=== PATIENT | female | born 1935 | race Caucasian/White ===

== ENCOUNTER 2017-08-05 09:43 | Inpatient (IN) | payer MEDICARE, BC ==
[2017-08-05] MEDS ORDERED: Ondansetron 4 MG/2 ML SDV IV PRN (12:53)
[2017-08-05] MEDS ORDERED: Sodium Chloride 0.9% 10 ML Syringe FLUSH PRN (12:53)
[2017-08-05] MEDS ORDERED: Ondansetron 4 MG Tab.DIS PO PRN (12:53)
[2017-08-05] MEDS ORDERED: Temazepam 15 MG Cap PO PRN (12:53)
[2017-08-05] MEDS ORDERED: fentaNYL 100 MCG/2 ML SDV IVPUSH PRN (12:56)
[2017-08-05] MEDS: Oxybutynin 5 MG Tab PO SCH ×2 (14:52→19:52)
[2017-08-05] MEDS: Enoxaparin 30 MG/0.3 ML Syringe SUBCUT SCH (14:52)
[2017-08-05] MEDS: ACETAMINOPHEN PO PRN (21:13)
[2017-08-05] MEDS: HYDROCODONE PO PRN (21:13)
[2017-08-06] MEDS ORDERED: Diazepam 5 MG Tab PO ONE (06:30)
[2017-08-06] MEDS: HYDROCODONE PO PRN (08:58)
[2017-08-06] MEDS: ACETAMINOPHEN PO PRN (08:58)
[2017-08-06] MEDS ORDERED: Cyclobenzaprine 10 MG Tab PO PRN (09:41)
[2017-08-06] MEDS ORDERED: fentaNYL 100 MCG/2 ML SDV IVPUSH PRN ×2 (09:41→10:17)
[2017-08-06] MEDS ORDERED: Ketorolac 30 MG/ML SDV IVPUSH ONE (09:41)
[2017-08-06] MEDS: Lisinopril 10 MG Tab PO SCH (10:11)
[2017-08-06] MEDS: Clopidogrel 75 MG Tab PO SCH (10:12)
[2017-08-06] MEDS: Isosorbide Mononitrate 30 MG Tab.ER PO SCH (10:12)
[2017-08-06] MEDS: Simvastatin 40 MG Tab PO SCH (10:12)
[2017-08-06] MEDS: Metoprolol Tartrate 25 MG Tab PO SCH (10:13)
[2017-08-06] MEDS: Furosemide 40 MG Tab PO SCH (10:13)
[2017-08-06] MEDS: Pantoprazole 40 MG Tab.CR PO SCH (10:13)
[2017-08-06] MEDS: Oxybutynin 5 MG Tab PO SCH ×3 (10:13→20:21)
[2017-08-06] MEDS ORDERED: methylPREDNISolone Sodium Succinate 125 MG/2 ML SDV ONE (10:18)
[2017-08-06] MEDS: Pantoprazole 40 MG Vial IVPUSH SCH (10:22)
[2017-08-06] MEDS ORDERED: Pantoprazole 40 MG Vial ONE (10:28)
[2017-08-06] MEDS ORDERED: Ketorolac 30 MG/ML SDV ONE (10:28)
[2017-08-06] MEDS: fentaNYL 100 MCG/2 ML SDV IVPUSH SCH ×2 (11:50→18:06)
[2017-08-06] MEDS: Enoxaparin 30 MG/0.3 ML Syringe SUBCUT SCH (14:07)
[2017-08-06] MEDS: Acetaminophen/HYDROcodone 325-5 MG Tab PO PRN ×2 (14:08→20:25)
[2017-08-06] MEDS ORDERED: fentaNYL 100 MCG/2 ML SDV IVPUSH ONE (15:10)
[2017-08-06] MEDS ORDERED: LORazepam 2 MG/ML Syringe IVPUSH ONE (15:10)
[2017-08-06] MEDS ORDERED: LORazepam 2 MG/ML Syringe ONE (15:26)
--- NOTE | 2017-08-06 21:42 | PCM.PN ---
- General Info Date of Service: 08/06/17 Admission Dx/Problem (Free Text): Back Pain due to compression fracture of L2 vertebrae Functional Status: Reports: Pain Controlled, Tolerating Diet. Denies: Ambulating - Review of Systems General: Reports: Weakness, Fatigue HEENT: Reports: No Symptoms Pulmonary: Reports: No Symptoms Cardiovascular: Reports: No Symptoms Gastrointestinal: Reports: No Symptoms Musculoskeletal: Reports: Back Pain Skin: Reports: No Symptoms Neurological: Reports: Weakness Psychiatric: Reports: No Symptoms - Patient Data Vitals - Most Recent: Last Vital Signs Temp 97.4 F 08/06/17 20:00 Pulse 78 08/06/17 20:00 Resp 16 08/06/17 20:00 BP 129/54 L 08/06/17 20:00 Pulse Ox 95 08/06/17 20:00 Weight - Most Recent: 226 lb Med Orders - Current: Current Medications Hydrocodone Bitart/Acetaminophen ([place] 325-5 Mg) 1 - 2 tab PO Q4H PRN PRN Reason: Pain (moderate 4-6) Last Admin: 08/06/17 20:25 Dose: 2 tab Clopidogrel Bisulfate (Plavix) 75 mg PO DAILY [facility] Last Admin: 08/06/17 10:12 Dose: 75 mg Cyclobenzaprine HCl (Flexeril) 5 mg PO BEDTIME PRN PRN Reason: Muscle Spasm Enoxaparin Sodium (Lovenox) 30 mg SUBCUT Q24H [facility] Last Admin: 08/06/17 14:07 Dose: 30 mg Fentanyl (Sublimaze) 50 mcg IVPUSH Q8H [facility] Last Admin: 08/06/17 18:06 Dose: 50 mcg Fentanyl (Sublimaze) 25 - 50 mcg IVPUSH Q6H PRN PRN Reason: Pain Furosemide (Lasix) 40 mg PO DAILY [facility] Last Admin: 08/06/17 10:13 Dose: 40 mg Isosorbide Mononitrate (Imdur) 30 mg PO DAILY [facility] Last Admin: 08/06/17 10:12 Dose: 30 mg Lisinopril (Prinivil) 20 mg PO DAILY [facility] Last Admin: 08/06/17 10:11 Dose: 20 mg Metoprolol Tartrate (Lopressor) 25 mg PO DAILY [facility] Last Admin: 08/06/17 10:13 Dose: 25 mg Ondansetron HCl (Zofran Odt) 4 mg PO Q4H PRN PRN Reason: nausea, able to take PO Ondansetron HCl (Zofran) 8 mg IV Q6H PRN PRN Reason: Nausea/Vomiting Oxybutynin Chloride (Oxybutynin) 5 mg PO TID [facility] Last Admin: 08/06/17 20:21 Dose: 5 mg Pantoprazole Sodium (Protonix) 40 mg PO DAILY [facility] Last Admin: 08/06/17 10:13 Dose: 40 mg Pantoprazole Sodium (Protonix Iv) 40 mg IVPUSH DAILY [facility] Last Admin: 08/06/17 10:22 Dose: 40 mg Simvastatin (Zocor) 40 mg PO DAILY [facility] Last Admin: 08/06/17 10:12 Dose: 40 mg Sodium Chloride (Saline Flush) 10 ml FLUSH ASDIRECTED PRN PRN Reason: Keep Vein Open Temazepam (Restoril) 15 mg PO BEDTIME PRN PRN Reason: Sleep Discontinued Medications Hydrocodone Bitart/Acetaminophen ([place] 325-5 Mg) 1 tab PO Q4H PRN PRN Reason: Pain (moderate 4-6) Last Admin: 08/06/17 08:58 Dose: 1 tab Diazepam (Valium.) 5 mg PO ONETIME ONE Stop: 08/06/17 06:31 Last Admin: 08/06/17 06:39 Dose: 5 mg Fentanyl (Sublimaze) 25 mcg IVPUSH Q6H PRN PRN Reason: Breakthrough Pain Last Admin: 08/06/17 07:35 Dose: 25 mcg Fentanyl (Sublimaze) 25 - 50 mcg IVPUSH Q4H PRN PRN Reason: Pain Fentanyl (Sublimaze) 50 mcg IVPUSH ONETIME ONE Stop: 08/06/17 15:11 Last Admin: 08/06/17 15:12 Dose: 50 mcg Ketorolac Tromethamine (Toradol) 30 mg IVPUSH ONETIME ONE Stop: 08/06/17 09:42 Last Admin: 08/06/17 10:18 Dose: 30 mg Lorazepam (Ativan) 1 mg IVPUSH ONETIME ONE Stop: 08/06/17 15:11 Last Admin: 08/06/17 15:16 Dose: 1 mg - Exam General: Alert, Oriented, Moderate Distress HEENT: Mucous Membr. Moist/[place] Neck: Supple Lungs: Clear to Auscultation, Normal Respiratory Effort Cardiovascular: Regular Rate, Regular Rhythm GI/Abdominal Exam: Normal Bowel Sounds, Soft, Non-Tender Back Exam: Decreased Range of Motion, Vertebral Tenderness Extremities: Normal Inspection, No Pedal Edema Skin: Warm, Dry Neurological: No New Focal Deficit - Problem List & Annotations (1) Compression fracture of L2 lumbar vertebra SNOMED Code(s): 15557154642509205 Code(s): S32.020A - WEDGE COMPRESSION FRACTURE OF SECOND LUMBAR VERTEBRA, INIT Status: Acute Priority: High Current Visit: Yes Qualifiers: Encounter type: initial encounter - Problem List Review Problem List Initiated/Reviewed/Updated: Yes - My Orders Last 24 Hours: My Active Orders 08/06/17 09:10 Acetaminophen/HYDROcodone [[place] 325-5 MG] 1 - 2 tab PO Q4H PRN 08/06/17 09:41 Cyclobenzaprine [Flexeril] 5 mg PO BEDTIME PRN 08/06/17 09:45 Pantoprazole [ProTONIX IV] 40 mg IVPUSH DAILY fentaNYL [Sublimaze] 50 mcg IVPUSH Q8H 08/06/17 10:17 fentaNYL [Sublimaze] 25 - 50 mcg IVPUSH Q6H PRN - Assessment Assessment:: L2 compression fracture - Plan Plan:: Patient continues to have ongoing back pain. Does not feel the meds provide her with nursing home benefits. Does well at rest, pain increases with movement. Not transferring well. Was incontinent of urine this am. Did attempt to do MRI this am but patient was unable to tolerate even though premedicated with Fentanyl and Ativan. Does not feel she could lie for a CT scan either. Is aware that further plan for possible vertebroplasty can not be done without the MRI/CT scan. Will attempt to repeat MRI later this afternoon. Changed Fentanyl to scheduled every 8 hours; transferred to inpatient status for pain control. Advised she could request additional pain meds between if needed. Start physical therapy. Inappropriate for discharge.
[2017-08-07] MEDS: fentaNYL 100 MCG/2 ML SDV IVPUSH SCH ×3 (02:57→17:52)
[2017-08-07] MEDS: Isosorbide Mononitrate 30 MG Tab.ER PO SCH (08:23)
[2017-08-07] MEDS: Simvastatin 40 MG Tab PO SCH (08:23)
[2017-08-07] MEDS: Metoprolol Tartrate 25 MG Tab PO SCH (08:24)
[2017-08-07] MEDS: Lisinopril 10 MG Tab PO SCH (08:24)
[2017-08-07] MEDS: Clopidogrel 75 MG Tab PO SCH (08:24)
[2017-08-07] MEDS: Furosemide 40 MG Tab PO SCH (08:25)
[2017-08-07] MEDS: Oxybutynin 5 MG Tab PO SCH ×3 (08:25→20:24)
[2017-08-07] MEDS: Pantoprazole 40 MG Tab.CR PO SCH (08:25)
[2017-08-07] MEDS: Acetaminophen/HYDROcodone 325-5 MG Tab PO PRN ×3 (08:30→20:24)
[2017-08-07] MEDS: Pantoprazole 40 MG Vial IVPUSH SCH (09:21)
[2017-08-07] MEDS: Enoxaparin 30 MG/0.3 ML Syringe SUBCUT SCH (12:06)
--- NOTE | 2017-08-07 17:25 | PCM.PN ---
- General Info Date of Service: 08/07/17 Admission Dx/Problem (Free Text): Back Pain due to compression fracture of L2 vertebrae Functional Status: Reports: Tolerating Diet. Denies: Pain Controlled, Ambulating - Review of Systems General: Reports: Weakness. Denies: Fever, Fatigue, Malaise HEENT: Reports: No Symptoms Pulmonary: Denies: Shortness of Breath, Cough, Sputum Cardiovascular: Denies: Chest Pain, Edema, Lightheadedness Gastrointestinal: Denies: Abdominal Pain, Nausea, Vomiting Genitourinary: Reports: No Symptoms Musculoskeletal: Reports: Back Pain Skin: Reports: No Symptoms Neurological: Reports: Weakness Psychiatric: Reports: No Symptoms - Patient Data Vitals - Most Recent: Last Vital Signs Temp 97.6 F 08/07/17 12:00 Pulse 75 08/07/17 12:00 Resp 20 08/07/17 12:00 BP 132/61 08/07/17 12:00 Pulse Ox 95 08/07/17 12:00 Weight - Most Recent: 226 lb Med Orders - Current: Current Medications Hydrocodone Bitart/Acetaminophen ([place] 325-5 Mg) 1 - 2 tab PO Q4H PRN PRN Reason: Pain (moderate 4-6) Last Admin: 08/07/17 15:03 Dose: 2 tab Cyclobenzaprine HCl (Flexeril) 5 mg PO BEDTIME PRN PRN Reason: Muscle Spasm Last Admin: 08/07/17 12:06 Dose: 5 mg Enoxaparin Sodium (Lovenox) 30 mg SUBCUT Q24H [facility] Last Admin: 08/07/17 12:06 Dose: 30 mg Fentanyl (Sublimaze) 50 mcg IVPUSH Q8H [facility] Last Admin: 08/07/17 09:33 Dose: 50 mcg Fentanyl (Sublimaze) 25 - 50 mcg IVPUSH Q6H PRN PRN Reason: Pain Furosemide (Lasix) 40 mg PO DAILY [facility] Last Admin: 08/07/17 08:25 Dose: 40 mg Isosorbide Mononitrate (Imdur) 30 mg PO DAILY [facility] Last Admin: 08/07/17 08:23 Dose: 30 mg Lisinopril (Prinivil) 20 mg PO DAILY [facility] Last Admin: 08/07/17 08:24 Dose: 20 mg Metoprolol Tartrate (Lopressor) 25 mg PO DAILY [facility] Last Admin: 08/07/17 08:24 Dose: 25 mg Ondansetron HCl (Zofran Odt) 4 mg PO Q4H PRN PRN Reason: nausea, able to take PO Ondansetron HCl (Zofran) 8 mg IV Q6H PRN PRN Reason: Nausea/Vomiting Oxybutynin Chloride (Oxybutynin) 5 mg PO TID [facility] Last Admin: 08/07/17 15:03 Dose: 5 mg Pantoprazole Sodium (Protonix) 40 mg PO DAILY [facility] Last Admin: 08/07/17 08:25 Dose: 40 mg Simvastatin (Zocor) 40 mg PO DAILY [facility] Last Admin: 08/07/17 08:23 Dose: 40 mg Sodium Chloride (Saline Flush) 10 ml FLUSH ASDIRECTED PRN PRN Reason: Keep Vein Open Temazepam (Restoril) 15 mg PO BEDTIME PRN PRN Reason: Sleep Discontinued Medications Hydrocodone Bitart/Acetaminophen ([place] 325-5 Mg) 1 tab PO Q4H PRN PRN Reason: Pain (moderate 4-6) Last Admin: 08/06/17 08:58 Dose: 1 tab Clopidogrel Bisulfate (Plavix) 75 mg PO DAILY [facility] Last Admin: 08/07/17 08:24 Dose: 75 mg Diazepam (Valium.) 5 mg PO ONETIME ONE Stop: 08/06/17 06:31 Last Admin: 08/06/17 06:39 Dose: 5 mg Fentanyl (Sublimaze) 25 mcg IVPUSH Q6H PRN PRN Reason: Breakthrough Pain Last Admin: 08/06/17 07:35 Dose: 25 mcg Fentanyl (Sublimaze) 25 - 50 mcg IVPUSH Q4H PRN PRN Reason: Pain Fentanyl (Sublimaze) 50 mcg IVPUSH ONETIME ONE Stop: 08/06/17 15:11 Last Admin: 08/06/17 15:12 Dose: 50 mcg Ketorolac Tromethamine (Toradol) 30 mg IVPUSH ONETIME ONE Stop: 08/06/17 09:42 Last Admin: 08/06/17 10:18 Dose: 30 mg Ketorolac Tromethamine (Toradol) Confirm Administered Dose 30 mg .ROUTE .STK- MED ONE Stop: 08/06/17 10:29 Last Admin: 08/07/17 10:52 Dose: Not Given Lorazepam (Ativan) 1 mg IVPUSH ONETIME ONE Stop: 08/06/17 15:11 Last Admin: 08/06/17 15:16 Dose: 1 mg Lorazepam (Ativan) Confirm Administered Dose 2 mg .ROUTE .STK-MED ONE Stop: 08/06/17 15:27 Last Admin: 08/07/17 10:52 Dose: Not Given Methylprednisolone Sodium Succinate (Solu-Medrol) Confirm Administered Dose 125 mg .ROUTE .STK-MED ONE Stop: 08/06/17 10:19 Last Admin: 08/07/17 10:52 Dose: Not Given Pantoprazole Sodium (Protonix Iv) 40 mg IVPUSH DAILY [facility] Last Admin: 08/07/17 09:21 Dose: Not Given Pantoprazole Sodium (Protonix Iv) Confirm Administered Dose 40 mg .ROUTE .STK -MED ONE Stop: 08/06/17 10:29 Last Admin: 08/07/17 10:52 Dose: Not Given - Exam General: Alert, Oriented HEENT: Mucous Membr. Moist/[place] Neck: Supple Lungs: Clear to Auscultation, Normal Respiratory Effort Cardiovascular: Regular Rate, Regular Rhythm GI/Abdominal Exam: Normal Bowel Sounds, Soft, Non-Tender Back Exam: Vertebral Tenderness (tender to lower thoracic and lumbar spine) Extremities: Normal Inspection, No Pedal Edema Skin: Warm, Dry Neurological: No New Focal Deficit - Problem List & Annotations (1) Compression fracture of L2 lumbar vertebra SNOMED Code(s): 78764002619079650 Code(s): S32.020A - [place]EDGE COMPRESSION FRACTURE OF SECOND LUMBAR VERTEBRA, INIT Status: Acute Priority: High Current Visit: Yes Qualifiers: Encounter type: initial encounter - Problem List Review Problem List Initiated/Reviewed/Updated: Yes - My Orders Last 24 Hours: My Active Orders 08/07/17 09:15 Lumbar Spine wo Cont [CT] Routine Thoracic Spine wo Cont [CT] Routine - Assessment Assessment:: L2 compression fracture - Plan Plan:: Patient continues to have ongoing back pain. 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 Does well at rest, pain increases with movement. Not transferring well. Was incontinent of urine this am. Did attempt to do MRI this am but patient was unable to tolerate even though premedicated with Fentanyl and Ativan. Does not feel she could lie for a CT scan either. Is aware that further plan for possible vertebroplasty can not be done without the MRI/CT scan. Will attempt to repeat MRI later this afternoon. Changed Fentanyl to scheduled every 8 hours; transferred to inpatient status for pain control. Advised she could request additional pain meds between if needed. Start physical therapy. Inappropriate for discharge. 08-07-2017 Patient continues to have complaints of ongoing pain. Staff relates she did rest well through the night, actually held her pain meds as she was difficult to around at 1 am. She states she is comfortable while at rest but pain is intense with movement. Unable to complete MRI yesterday on the second attempt as the MRI truck had to be moved for life flight to land so they opted to leave. Will proceed with CT scan for the thoracic and lumbar spine. Continue scheduled pain meds. Physical therapy. Possibly consult with Interventional Radiology pending the CT report. Inappropriate for discharge due to pain level.
[2017-08-08] MEDS: fentaNYL 100 MCG/2 ML SDV IVPUSH SCH ×3 (01:17→17:19)
[2017-08-08] MEDS: Acetaminophen/HYDROcodone 325-5 MG Tab PO PRN ×3 (07:01→19:34)
[2017-08-08] MEDS: Metoprolol Tartrate 25 MG Tab PO SCH (07:02)
[2017-08-08] MEDS: Simvastatin 40 MG Tab PO SCH (07:02)
[2017-08-08] MEDS: Pantoprazole 40 MG Tab.CR PO SCH (07:03)
[2017-08-08] MEDS: Furosemide 40 MG Tab PO SCH (07:03)
[2017-08-08] MEDS: Isosorbide Mononitrate 30 MG Tab.ER PO SCH (07:03)
[2017-08-08] MEDS: Oxybutynin 5 MG Tab PO SCH ×3 (07:03→19:34)
[2017-08-08] MEDS: Lisinopril 10 MG Tab PO SCH (07:03)
[2017-08-08] MEDS ORDERED: Cyclobenzaprine 10 MG Tab PO PRN (09:34)
[2017-08-08] MEDS: Enoxaparin 30 MG/0.3 ML Syringe SUBCUT SCH (12:12)
--- NOTE | 2017-08-08 23:37 | PCM.PN ---
- General Info Date of Service: 08/08/17 Admission Dx/Problem (Free Text): Back Pain due to compression fracture of L2 vertebrae Functional Status: Reports: Tolerating Diet, Ambulating. Denies: Pain Controlled - Review of Systems General: Reports: Weakness, Fatigue, Malaise. Denies: Fever HEENT: Reports: No Symptoms Pulmonary: Reports: Shortness of Breath. Denies: Cough Cardiovascular: Reports: Chest Pain, Edema, Lightheadedness Gastrointestinal: Denies: Abdominal Pain, Nausea, Vomiting Musculoskeletal: Reports: Back Pain Skin: Reports: No Symptoms Neurological: Reports: No Symptoms - Patient Data Vitals - Most Recent: Last Vital Signs Temp 98.2 F 08/08/17 19:51 Pulse 85 08/08/17 19:51 Resp 16 08/08/17 19:51 BP 141/60 H 08/08/17 19:51 Pulse Ox 97 08/08/17 19:51 Weight - Most Recent: 226 lb Med Orders - Current: Current Medications Hydrocodone Bitart/Acetaminophen ([place] 325-5 Mg) 1 - 2 tab PO Q4H PRN PRN Reason: Pain (moderate 4-6) Last Admin: 08/08/17 19:34 Dose: 2 tab Cyclobenzaprine HCl (Flexeril) 5 mg PO Q8H PRN PRN Reason: Muscle Spasm Last Admin: 08/08/17 10:24 Dose: 5 mg Enoxaparin Sodium (Lovenox) 30 mg SUBCUT Q24H [facility] Last Admin: 08/08/17 12:12 Dose: 30 mg Fentanyl (Sublimaze) 50 mcg IVPUSH Q8H [facility] Last Admin: 08/08/17 17:19 Dose: 50 mcg Fentanyl (Sublimaze) 25 - 50 mcg IVPUSH Q6H PRN PRN Reason: Pain Furosemide (Lasix) 40 mg PO DAILY [facility] Last Admin: 08/08/17 07:03 Dose: 40 mg Isosorbide Mononitrate (Imdur) 30 mg PO DAILY [facility] Last Admin: 08/08/17 07:03 Dose: 30 mg Lisinopril (Prinivil) 20 mg PO DAILY [facility] Last Admin: 08/08/17 07:03 Dose: 20 mg Metoprolol Tartrate (Lopressor) 25 mg PO DAILY [facility] Last Admin: 08/08/17 07:02 Dose: 25 mg Ondansetron HCl (Zofran Odt) 4 mg PO Q4H PRN PRN Reason: nausea, able to take PO Ondansetron HCl (Zofran) 8 mg IV Q6H PRN PRN Reason: Nausea/Vomiting Oxybutynin Chloride (Oxybutynin) 5 mg PO TID [facility] Last Admin: 08/08/17 19:34 Dose: 5 mg Pantoprazole Sodium (Protonix) 40 mg PO DAILY [facility] Last Admin: 08/08/17 07:03 Dose: 40 mg Simvastatin (Zocor) 40 mg PO DAILY [facility] Last Admin: 08/08/17 07:02 Dose: 40 mg Sodium Chloride (Saline Flush) 10 ml FLUSH ASDIRECTED PRN PRN Reason: Keep Vein Open Temazepam (Restoril) 15 mg PO BEDTIME PRN PRN Reason: Sleep Discontinued Medications Hydrocodone Bitart/Acetaminophen ([place] 325-5 Mg) 1 tab PO Q4H PRN PRN Reason: Pain (moderate 4-6) Last Admin: 08/06/17 08:58 Dose: 1 tab Clopidogrel Bisulfate (Plavix) 75 mg PO DAILY [facility] Last Admin: 08/07/17 08:24 Dose: 75 mg Cyclobenzaprine HCl (Flexeril) 5 mg PO BEDTIME PRN PRN Reason: Muscle Spasm Last Admin: 08/07/17 12:06 Dose: 5 mg Diazepam (Valium.) 5 mg PO ONETIME ONE Stop: 08/06/17 06:31 Last Admin: 08/06/17 06:39 Dose: 5 mg Fentanyl (Sublimaze) 25 mcg IVPUSH Q6H PRN PRN Reason: Breakthrough Pain Last Admin: 08/06/17 07:35 Dose: 25 mcg Fentanyl (Sublimaze) 25 - 50 mcg IVPUSH Q4H PRN PRN Reason: Pain Fentanyl (Sublimaze) 50 mcg IVPUSH ONETIME ONE Stop: 08/06/17 15:11 Last Admin: 08/06/17 15:12 Dose: 50 mcg Ketorolac Tromethamine (Toradol) 30 mg IVPUSH ONETIME ONE Stop: 08/06/17 09:42 Last Admin: 08/06/17 10:18 Dose: 30 mg Ketorolac Tromethamine (Toradol) Confirm Administered Dose 30 mg .ROUTE .STK- MED ONE Stop: 08/06/17 10:29 Last Admin: 08/07/17 10:52 Dose: Not Given Lorazepam (Ativan) 1 mg IVPUSH ONETIME ONE Stop: 08/06/17 15:11 Last Admin: 08/06/17 15:16 Dose: 1 mg Lorazepam (Ativan) Confirm Administered Dose 2 mg .ROUTE .STK-MED ONE Stop: 08/06/17 15:27 Last Admin: 08/07/17 10:52 Dose: Not Given Methylprednisolone Sodium Succinate (Solu-Medrol) Confirm Administered Dose 125 mg .ROUTE .STK-MED ONE Stop: 08/06/17 10:19 Last Admin: 08/07/17 10:52 Dose: Not Given Pantoprazole Sodium (Protonix Iv) 40 mg IVPUSH DAILY [facility] Last Admin: 08/07/17 09:21 Dose: Not Given Pantoprazole Sodium (Protonix Iv) Confirm Administered Dose 40 mg .ROUTE .STK -MED ONE Stop: 08/06/17 10:29 Last Admin: 08/07/17 10:52 Dose: Not Given - Exam General: Alert, Oriented HEENT: Mucous Membr. Moist/[place] Neck: Supple Lungs: Clear to Auscultation, Normal Respiratory Effort Cardiovascular: Regular Rate, Regular Rhythm Back Exam: Decreased Range of Motion, Vertebral Tenderness Skin: Warm, Dry Neurological: No New Focal Deficit - Problem List & Annotations (1) Compression fracture of L2 lumbar vertebra SNOMED Code(s): 70252573414652308 Code(s): S32.020A - [place]EDGE COMPRESSION FRACTURE OF SECOND LUMBAR VERTEBRA, INIT Status: Acute Priority: High Qualifiers: Encounter type: initial encounter (2) Thoracic compression fracture SNOMED Code(s): 761502405, [id number] Code(s): S22.000A - [place]ED[place] COMPRESSION FRACTURE OF UNSP THORACIC VERTEBRA, INIT Status: Acute Priority: High Qualifiers: Encounter type: initial encounter - Problem List Review Problem List Initiated/Reviewed/Updated: Yes - My Orders Last 24 Hours: My Active Orders 08/08/17 09:34 Cyclobenzaprine [Flexeril] 5 mg PO Q8H PRN - Assessment Assessment:: L2 compression fracture - Plan Plan:: Patient continues to have ongoing back pain. Does not feel the meds provide her with correction benefits. Does well at rest, pain increases with movement. Not transferring well. Was incontinent of urine this am. Did attempt to do MRI this am but patient was unable to tolerate even though premedicated with Fentanyl and Ativan. Does not feel she could lie for a CT scan either. Is aware that further plan for possible vertebroplasty can not be done without the MRI/CT scan. Will attempt to repeat MRI later this afternoon. Changed Fentanyl to scheduled every 8 hours; transferred to inpatient status for pain control. Advised she could request additional pain meds between if needed. Start physical therapy. Inappropriate for discharge. 08-07-2017 Patient continues to have complaints of ongoing pain. Staff relates she did rest well through the night, actually held her pain meds as she was difficult to around at 1 am. She states she is comfortable while at rest but pain is intense with movement. Unable to complete MRI yesterday on the second attempt as the MRI truck had to be moved for life flight to land so they opted to leave. Will proceed with CT scan for the thoracic and lumbar spine. Continue scheduled pain meds. Physical therapy. Possibly consult with Interventional Radiology pending the CT report. Inappropriate for discharge due to pain level. 08-08-2017 Patient has ongoing pain in her back. Despite pain meds, has discomfort with movement. CT results do show compression fractures to T10 and T12 as well as the lumbar one. Did speak with Dr. Matias this am and was informed that difficult to determine if subacute versus acute and will ultimately need an MRI. He does note that vertebroplasty will be beneficial for T12. Plan for her to be completely off the Plavix and ASA for one week today. Have him see her on Saturday for consult. Will determine if requires ambulance transfer and admission there dependent on pain level that day. Will continue with current pain meds, physical therapy. Plan for transfer to swing bed on Saturday for ongoing pain control and assistance with transfers/ ADLs. Family all informed.
[2017-08-09] MEDS: fentaNYL 100 MCG/2 ML SDV IVPUSH SCH ×2 (01:14→09:39)
[2017-08-09 07:29] VITALS: BP 177/81
[2017-08-09] MEDS: Furosemide 40 MG Tab PO SCH (08:20)
[2017-08-09] MEDS: Isosorbide Mononitrate 30 MG Tab.ER PO SCH (08:20)
[2017-08-09] MEDS: Metoprolol Tartrate 25 MG Tab PO SCH (08:20)
[2017-08-09] MEDS: Lisinopril 10 MG Tab PO SCH (08:21)
[2017-08-09] MEDS: Oxybutynin 5 MG Tab PO SCH (08:21)
[2017-08-09] MEDS: Pantoprazole 40 MG Tab.CR PO SCH (08:21)
[2017-08-09] MEDS: Simvastatin 40 MG Tab PO SCH (08:22)
[2017-08-09] MEDS: Acetaminophen/HYDROcodone 325-5 MG Tab PO PRN (08:29)
--- NOTE | 2017-08-09 12:22 | PCM.DCSUM1 ---
Discharge Summary - Hospital Course Free Text/Narrative:: Patient admitted by Dr. Palmer from clinic for ongoing low back pain. She had a previous fall several weeks ago, had been using pain medications and seeing PT but continues to get worse. States any type of activity is difficult due to pain. Has been noting muscle spasms with this. She had xrays initially after the fall with a notable lumbar compression fracture. Had felt she could manage at home but found that to be quite difficult. Admitted for pain control. MRI ordered. - Discharge Data Discharge Date: 08/09/17 Discharge Disposition: DC/Tfer W/I Hosp To Swing 61 Condition: Fair - Discharge Diagnosis/Problem(s) (1) Compression fracture of L2 lumbar vertebra SNOMED Code(s): [id number] ICD Code: S32.020A - WEDGE COMPRESSION FRACTURE OF SECOND LUMBAR VERTEBRA, INIT Status: Acute Priority: High Qualifiers: Encounter type: initial encounter (2) Thoracic compression fracture SNOMED Code(s): 365128771, 837171266 ICD Code: S22.000A - WEDGE COMPRESSION FRACTURE OF UNSP THORACIC VERTEBRA, INIT Status: Acute Priority: High Qualifiers: Encounter type: initial encounter - Patient Summary/Data Complications: none Consults: Consultations 08/05/17 12:53 PT Evaluation and Treatment [CONS] Routine Hospital Course: Patient has continued to have ongoing back pain despite receiving frequent medications. Does well at rest but has significant discomfort with transfers. Has been on scheduled IV Fentanyl and Butler PRN. Physical therapy working with patient. She was unable to complete the MRI on Saturday as she could not tolerate lying flat. CT ultimately was done on Saturday with more premedication. She does have 2 compression fractures in her thoracic spine in T10 and T12 as well with loss of height. Dr. Monte of interventional radiology was consulted. Does recommend proceeding with vertebroplasty but may need to do MRI under general anesthesia to determine acuteness of the fractures. Will be off her Coumadin and Plavix for a week on Saturday so will contact him with transfer and determine if able to be seen as an outpatient and that time or be admitted by them for the procedure. - Patient Instructions Diet: Usual Diet as Tolerated Activity: As Tolerated - Discharge Plan Home Medications: Home Meds Furosemide 1 tab PO DAILY 10/10/14 [History] Isosorbide Mononitrate [Imdur] 1 tab PO DAILY 10/10/14 [History] Lisinopril 20 mg PO DAILY 10/10/14 [History] Metoprolol Tartrate [Lopressor] 1 tab PO DAILY 10/10/14 [History] Omeprazole 1 tab PO DAILY 10/10/14 [History] Oxybutynin 5 mg PO TID 10/10/14 [History] atorvaSTATin [Lipitor] 1 tab PO DAILY 10/10/14 [History] traMADol HCl [Tramadol HCl] 2 tab PO BID 10/10/14 [History] Ascorbate Calcium [Vitamin C] 500 mg PO DAILY 08/05/17 [History] Aspirin [Halfprin] 81 mg PO DAILY 08/05/17 [History] Calcium Carbonate/Vitamin D3 [Calcium 600 + Vit D 400 Tablet] 1 each PO DAILY [History] Cholecalciferol (Vitamin D3) [Vitamin D3] 1,000 units PO DAILY 08/05/17 [History ] Gluc/Emigdio-Msm#2/C/D3/Hitesh/Born [Fncmxbzuam-Slwpdmqixzy-HML] 1 each PO BID [History] Hydrocodone/Acetaminophen [Hydrocodon-Acetaminophen 5-325] 5 - 325 mg PO ASDIRECTED PRN 08/05/17 [History] Levothyroxine Sodium [Levoxyl] 50 mcg PO DAILY 08/05/17 [History] Lutein 20 mg PO DAILY 08/05/17 [History] Multivitamins [Tab-A-Brandi] 1 each PO DAILY 08/05/17 [History] Potassium 1 tab PO DAILY 08/05/17 [History] Patient Handouts: Spinal Compression Fracture - Discharge Summary/Plan Comment DC Time >30 min.: Yes Discharge Summary/Plan Comment: Transfer to swing bed for ongoing pain control. Plan for more definitive care of fractures next week with Dr. Matias. Continue physical therapy and scheduled IV pain meds. Will start Miralax and stool softeners. Time with patient and family 15 minutes Time for orders 10 minutes Time for documentation 10 minutes. - General Info Date of Service: 08/09/17 Admission Dx/Problem (Free Text: Back Pain due to compression fracture of L2 vertebrae Functional Status: Reports: Tolerating Diet. Denies: Pain Controlled, Ambulating - Review of Systems General: Reports: Weakness, Fatigue HEENT: Reports: No Symptoms Pulmonary: Reports: No Symptoms Cardiovascular: Reports: No Symptoms Gastrointestinal: Reports: Constipation Genitourinary: Reports: No Symptoms Musculoskeletal: Reports: Back Pain Skin: Reports: No Symptoms Neurological: Reports: No Symptoms - Patient Data Vitals - Most Recent: Last Vital Signs Temp 98.0 F 08/09/17 07:28 Pulse 93 08/09/17 08:20 Resp 16 08/09/17 07:28 BP 177/81 H 08/09/17 08:21 Pulse Ox 97 08/09/17 07:28 Weight - Most Recent: 226 lb Med Orders - Current: Current Medications Discontinued Medications Hydrocodone Bitart/Acetaminophen (Butler 325-5 Mg) 1 tab PO Q4H PRN PRN Reason: Pain (moderate 4-6) Last Admin: 08/06/17 08:58 Dose: 1 tab Hydrocodone Bitart/Acetaminophen ([place]ler 325-5 Mg) 1 - 2 tab PO Q4H PRN PRN Reason: Pain (moderate 4-6) Last Admin: 08/09/17 08:29 Dose: 2 tab Clopidogrel Bisulfate (Plavix) 75 mg PO DAILY [facility] Last Admin: 08/07/17 08:24 Dose: 75 mg Cyclobenzaprine HCl (Flexeril) 5 mg PO BEDTIME PRN PRN Reason: Muscle Spasm Last Admin: 08/07/17 12:06 Dose: 5 mg Cyclobenzaprine HCl (Flexeril) 5 mg PO Q8H PRN PRN Reason: Muscle Spasm Last Admin: 08/08/17 10:24 Dose: 5 mg Diazepam (Valium.) 5 mg PO ONETIME ONE Stop: 08/06/17 06:31 Last Admin: 08/06/17 06:39 Dose: 5 mg Enoxaparin Sodium (Lovenox) 30 mg SUBCUT Q24H [facility] Last Admin: 08/08/17 12:12 Dose: 30 mg Fentanyl (Sublimaze) 25 mcg IVPUSH Q6H PRN PRN Reason: Breakthrough Pain Last Admin: 08/06/17 07:35 Dose: 25 mcg Fentanyl (Sublimaze) 50 mcg IVPUSH Q8H [facility] Last Admin: 08/09/17 09:39 Dose: 50 mcg Fentanyl (Sublimaze) 25 - 50 mcg IVPUSH Q4H PRN PRN Reason: Pain Fentanyl (Sublimaze) 25 - 50 mcg IVPUSH Q6H PRN PRN Reason: Pain Last Admin: 08/09/17 04:20 Dose: 50 mcg Fentanyl (Sublimaze) 50 mcg IVPUSH ONETIME ONE Stop: 08/06/17 15:11 Last Admin: 08/06/17 15:12 Dose: 50 mcg Furosemide (Lasix) 40 mg PO DAILY [facility] Last Admin: 08/09/17 08:20 Dose: 40 mg Isosorbide Mononitrate (Imdur) 30 mg PO DAILY [facility] Last Admin: 08/09/17 08:20 Dose: 30 mg Ketorolac Tromethamine (Toradol) 30 mg IVPUSH ONETIME ONE Stop: 08/06/17 09:42 Last Admin: 08/06/17 10:18 Dose: 30 mg Ketorolac Tromethamine (Toradol) Confirm Administered Dose 30 mg .ROUTE .STK- MED ONE Stop: 08/06/17 10:29 Last Admin: 08/07/17 10:52 Dose: Not Given Lisinopril (Prinivil) 20 mg PO DAILY [facility] Last Admin: 08/09/17 08:21 Dose: 20 mg Lorazepam (Ativan) 1 mg IVPUSH ONETIME ONE Stop: 08/06/17 15:11 Last Admin: 08/06/17 15:16 Dose: 1 mg Lorazepam (Ativan) Confirm Administered Dose 2 mg .ROUTE .STK-MED ONE Stop: 08/06/17 15:27 Last Admin: 08/07/17 10:52 Dose: Not Given Methylprednisolone Sodium Succinate (Solu-Medrol) Confirm Administered Dose 125 mg .ROUTE .STK-MED ONE Stop: 08/06/17 10:19 Last Admin: 08/07/17 10:52 Dose: Not Given Metoprolol Tartrate (Lopressor) 25 mg PO DAILY [facility] Last Admin: 08/09/17 08:20 Dose: 25 mg Ondansetron HCl (Zofran Odt) 4 mg PO Q4H PRN PRN Reason: nausea, able to take PO Ondansetron HCl (Zofran) 8 mg IV Q6H PRN PRN Reason: Nausea/Vomiting Oxybutynin Chloride (Oxybutynin) 5 mg PO TID [facility] Last Admin: 08/09/17 08:21 Dose: 5 mg Pantoprazole Sodium (Protonix) 40 mg PO DAILY [facility] Last Admin: 08/09/17 08:21 Dose: 40 mg Pantoprazole Sodium (Protonix Iv) 40 mg IVPUSH DAILY [facility] Last Admin: 08/07/17 09:21 Dose: Not Given Pantoprazole Sodium (Protonix Iv) Confirm Administered Dose 40 mg .ROUTE .STK -MED ONE Stop: 08/06/17 10:29 Last Admin: 08/07/17 10:52 Dose: Not Given Simvastatin (Zocor) 40 mg PO DAILY [facility] Last Admin: 08/09/17 08:22 Dose: 40 mg Sodium Chloride (Saline Flush) 10 ml FLUSH ASDIRECTED PRN PRN Reason: Keep Vein Open Temazepam (Restoril) 15 mg PO BEDTIME PRN PRN Reason: Sleep - Exam General: Reports: Alert, Oriented HEENT: Reports: Mucous Membr. Moist/[place] Neck: Reports: Supple Lungs: Reports: Clear to Auscultation, Normal Respiratory Effort Cardiovascular: Reports: Regular Rate, Regular Rhythm GI/Abdominal Exam: Normal Bowel Sounds, Soft, Non-Tender Back Exam: Reports: Normal Inspection, Decreased Range of Motion, Muscle Spasm, Vertebral Tenderness Extremities: Normal Inspection Skin: Reports: Warm, Dry Neurological: Reports: No New Focal Deficit
== END 2017-08-09 10:16 | disposition swing bed (61) | DRG 552 ==
LOC: CC.MS 09:43 → UNDOADMOB 10:43 → CC.MS 12:53 → OBSVTOIN 08-06 09:43
PROVIDERS: ADMIT Family Medicine; ATTEND Family Medicine
DX: S32.029A Unspecified fracture of second lumbar vertebra, initial encounter for closed fracture (principal); S32.039A Unspecified fracture of third lumbar vertebra, initial encounter for closed fracture; S32.020A Wedge compression fracture of second lumbar vertebra, initial encounter for closed fracture; S22.070A Wedge compression fracture of T9-T10 vertebra, initial encounter for closed fracture; S22.080A Wedge compression fracture of T11-T12 vertebra, initial encounter for closed fracture; S32.030A Wedge compression fracture of third lumbar vertebra, initial encounter for closed fracture; W19.XXXA Unspecified fall, initial encounter; I25.10 Atherosclerotic heart disease of native coronary artery without angina pectoris; D47.2 Monoclonal gammopathy; K21.9 Gastro-esophageal reflux disease without esophagitis; E78.5 Hyperlipidemia, unspecified; I10 Essential (primary) hypertension; E03.9 Hypothyroidism, unspecified; M15.9 Polyosteoarthritis, unspecified; M81.0 Age-related osteoporosis without current pathological fracture; N32.81 Overactive bladder; M54.9 Dorsalgia, unspecified; Z88.8 Allergy status to other drugs, medicaments and biological substances; Z79.82 Long term (current) use of aspirin; Z79.899 Other long term (current) drug therapy; Z96.659 Presence of unspecified artificial knee joint; Z79.01 Long term (current) use of anticoagulants; Z79.02 Long term (current) use of antithrombotics/antiplatelets
CPT/HCPCS: 36415; 72070; 72128; 72131; 80048; 81001; 85025; 96372; 97110-GP; 97161-GP; 97530-GP; A9270-GY; C9113; G0378; J1650; J1885; J2060; J3010

== ENCOUNTER 2017-08-09 09:46 | Inpatient (IN) | payer MEDICARE, BC ==
[2017-08-09] MEDS ORDERED: fentaNYL 100 MCG/2 ML SDV IVPUSH PRN (10:56)
[2017-08-09] MEDS ORDERED: Ondansetron 4 MG Tab.DIS PO PRN (10:56)
[2017-08-09] MEDS ORDERED: Sodium Chloride 0.9% 10 ML Syringe FLUSH PRN ×2 (10:56)
[2017-08-09] MEDS ORDERED: Temazepam 15 MG Cap PO PRN (10:56)
[2017-08-09] MEDS ORDERED: Ondansetron 4 MG/2 ML SDV IV PRN (10:56)
[2017-08-09] MEDS ORDERED: fentaNYL 100 MCG/2 ML SDV IVPUSH SCH (12:00)
[2017-08-09] MEDS: Docusate Sodium 100 MG Cap PO SCH ×2 (12:05→19:46)
[2017-08-09] MEDS: Polyethylene Glycol 3350 Powder 17 GM Packet PO SCH (12:05)
[2017-08-09] MEDS: Cyclobenzaprine 10 MG Tab PO PRN ×2 (12:06→20:01)
[2017-08-09] MEDS: Enoxaparin 30 MG/0.3 ML Syringe SUBCUT SCH (12:06)
[2017-08-09] MEDS: Potassium Chloride 10 MEQ Tab.ER PO SCH (13:25)
[2017-08-09] MEDS: Oxybutynin 5 MG Tab PO SCH ×2 (13:26→19:46)
[2017-08-09] MEDS: fentaNYL 100 MCG/2 ML SDV IVPUSH SCH ×2 (15:35→23:44)
[2017-08-09] MEDS: Acetaminophen/HYDROcodone 325-5 MG Tab PO PRN (17:55)
[2017-08-10] MEDS: Acetaminophen/HYDROcodone 325-5 MG Tab PO PRN ×2 (05:01→14:02)
[2017-08-10] MEDS: Polyethylene Glycol 3350 Powder 17 GM Packet PO SCH (07:35)
[2017-08-10] MEDS: Pantoprazole 40 MG Tab.CR PO SCH (07:35)
[2017-08-10] MEDS: Lisinopril 10 MG Tab PO SCH (07:35)
[2017-08-10] MEDS: Oxybutynin 5 MG Tab PO SCH ×3 (07:35→19:49)
[2017-08-10] MEDS: Furosemide 40 MG Tab PO SCH (07:36)
[2017-08-10] MEDS: Isosorbide Mononitrate 30 MG Tab.ER PO SCH (07:36)
[2017-08-10] MEDS: Metoprolol Tartrate 25 MG Tab PO SCH (07:36)
[2017-08-10] MEDS: Potassium Chloride 10 MEQ Tab.ER PO SCH (07:37)
[2017-08-10] MEDS: Docusate Sodium 100 MG Cap PO SCH ×2 (07:37→19:48)
[2017-08-10] MEDS: fentaNYL 100 MCG/2 ML SDV IVPUSH SCH ×2 (07:39→17:47)
[2017-08-10] MEDS: Levothyroxine 50 MCG Tab PO SCH (07:42)
[2017-08-10] MEDS: Enoxaparin 30 MG/0.3 ML Syringe SUBCUT SCH (11:05)
[2017-08-10] MEDS: Simvastatin 40 MG Tab PO SCH (19:48)
[2017-08-11] MEDS: fentaNYL 100 MCG/2 ML SDV IVPUSH SCH ×3 (00:49→16:08)
[2017-08-11] MEDS: Levothyroxine 50 MCG Tab PO SCH (06:14)
[2017-08-11] MEDS: Pantoprazole 40 MG Tab.CR PO SCH (06:14)
[2017-08-11] MEDS: Isosorbide Mononitrate 30 MG Tab.ER PO SCH (08:14)
[2017-08-11] MEDS: Oxybutynin 5 MG Tab PO SCH ×3 (08:14→19:43)
[2017-08-11] MEDS: Polyethylene Glycol 3350 Powder 17 GM Packet PO SCH (08:14)
[2017-08-11] MEDS: Cyclobenzaprine 10 MG Tab PO PRN (08:15)
[2017-08-11] MEDS: Furosemide 40 MG Tab PO SCH (08:15)
[2017-08-11] MEDS: Metoprolol Tartrate 25 MG Tab PO SCH (08:15)
[2017-08-11] MEDS: Docusate Sodium 100 MG Cap PO SCH ×2 (08:16→19:43)
[2017-08-11] MEDS: Lisinopril 10 MG Tab PO SCH (08:16)
[2017-08-11] MEDS: Potassium Chloride 10 MEQ Tab.ER PO SCH (08:16)
[2017-08-11] MEDS: Enoxaparin 30 MG/0.3 ML Syringe SUBCUT SCH (12:11)
[2017-08-11] MEDS: Acetaminophen/HYDROcodone 325-5 MG Tab PO PRN ×2 (13:48→19:50)
[2017-08-11] MEDS: Simvastatin 40 MG Tab PO SCH (19:43)
[2017-08-12] MEDS: fentaNYL 100 MCG/2 ML SDV IVPUSH SCH ×2 (00:26→08:20)
[2017-08-12] MEDS: Pantoprazole 40 MG Tab.CR PO SCH (06:16)
[2017-08-12] MEDS: Acetaminophen/HYDROcodone 325-5 MG Tab PO PRN (06:16)
[2017-08-12] MEDS: Levothyroxine 50 MCG Tab PO SCH (06:16)
[2017-08-12 07:25] VITALS: BP 153/71
[2017-08-12] MEDS: Polyethylene Glycol 3350 Powder 17 GM Packet PO SCH (08:09)
[2017-08-12] MEDS: Metoprolol Tartrate 25 MG Tab PO SCH (08:10)
[2017-08-12] MEDS: Lisinopril 10 MG Tab PO SCH (08:10)
[2017-08-12] MEDS: Potassium Chloride 10 MEQ Tab.ER PO SCH (08:10)
[2017-08-12] MEDS: Isosorbide Mononitrate 30 MG Tab.ER PO SCH (08:10)
[2017-08-12] MEDS: Oxybutynin 5 MG Tab PO SCH (08:10)
[2017-08-12] MEDS: Docusate Sodium 100 MG Cap PO SCH (08:10)
[2017-08-12] MEDS: Furosemide 40 MG Tab PO SCH (08:26)
--- NOTE | 2017-08-14 09:19 | PCM.DCSUM1 ---
Discharge Summary - Hospital Course Free Text/Narrative:: Patient admitted from clinic with increased back pain. Had been previously diagnosed with a compression fracture and was on pain medications at home. Pain had progressed and patient not able to transfer, sleep or ambulate well due to pain. Admitted for pain control and therapy. During acute stay, patient unable to lie flat for MRI despite premedication. She continued to have significant discomfort. CT ordered that does show 3 compressions fractures , T10, T12, L1. Had been given 2 doses of Plavix after admission. Discussed report and pain with Dr. Monte, interventional radiology. Agrees may be candidate for vertebroplasty and needs to be off ASA and Plavix for the 7 days. Transferred to swing bed for ongoing pain control during this time frame. - Discharge Data Discharge Date: 08/12/17 Discharge Disposition: Home, Self-Care 01 Condition: Good - Patient Summary/Data Complications: none Consults: Consultations 08/09/17 10:56 PT Evaluation and Treatment [CONS] Routine Hospital Course: Patient has improved slightly over the weekend, continues to have pain but more cooperative with transfers to bathroom. Has ongoing pain in the mid to low back. Appetite has been good. Discussed again with DR. Monte this am. Will discharge patient to be seen by him in clinic today in [place] and he will determine admission status versus having patient return for MRI under sedation and possible vertebroplasty. She was given 2 pain medications this am. Discharge home after procedure with home health care. Nursing to monitor pain status, blood pressure and ability to care for self, ie. ADLs. Physical therapy for strengthening. Is homebound due to inability to drive because of compression fractures, weakness and pain. Monitor for safety regarding falls. Dr. Palmer to oversee home health care. - Patient Instructions Diet: Usual Diet as Tolerated Activity: As Tolerated - Discharge Plan Prescriptions/Med Rec: Hydrocodone/Acetaminophen [Hydrocodon-Acetaminophen 5-325] 5 - 325 mg PO ASDIRECTED PRN #30 tablet PRN Reason: Pain Home Medications: Home Meds Furosemide 1 tab PO DAILY 10/10/14 [History] Isosorbide Mononitrate [Imdur] 1 tab PO DAILY 10/10/14 [History] Lisinopril 20 mg PO DAILY 10/10/14 [History] Metoprolol Tartrate [Lopressor] 1 tab PO DAILY 06/28/15 [History] Omeprazole 1 tab PO DAILY 10/10/14 [History] Oxybutynin 5 mg PO TID 10/10/14 [History] atorvaSTATin [Lipitor] 1 tab PO DAILY 10/10/14 [History] traMADol HCl [Tramadol HCl] 2 tab PO BID 10/10/14 [History] Ascorbate Calcium [Vitamin C] 500 mg PO DAILY 08/05/17 [History] Aspirin [Halfprin] 81 mg PO DAILY 08/05/17 [History] Calcium Carbonate/Vitamin D3 [Calcium 600-Vit D3 400 Tablet] 1 each PO DAILY [History] Cholecalciferol (Vitamin D3) [Vitamin D3] 1,000 units PO DAILY 08/05/17 [History ] Gluc/Emigdio-Msm#2/C/D3/Hitesh/Born [Xcqnnnbckw-Kyaptszjmzh-IOE] 1 each PO BID [History] Levothyroxine Sodium [Levoxyl] 50 mcg PO DAILY 08/05/17 [History] Lutein 20 mg PO DAILY 08/05/17 [History] Multivitamins [Tab-A-Brandi] 1 each PO DAILY 08/05/17 [History] Potassium 1 tab PO DAILY 08/05/17 [History] Docusate Sodium [Colace] 100 mg PO BID cap 08/12/17 [Rx] Hydrocodone/Acetaminophen [Hydrocodon-Acetaminophen 5-325] 5 - 325 mg PO ASDIRECTED PRN #30 tablet 08/12/17 [Rx] Polyethylene Glycol 3350 [MiraLAX] 17 gm PO DAILY packet 08/12/17 [Rx] Referrals: Nixon Monte MD [Consulting Physician] - (To have MRI at noon and see Dr. Monte after at [facility] in [place] today) - Discharge Summary/Plan Comment DC Time >30 min.: No - General Info Date of Service: 08/12/17 Admission Dx/Problem (Free Text: T10, T12, L1 compression fractures Functional Status: Reports: Pain Controlled (with frequent pain meds), Tolerating Diet. Denies: Ambulating - Review of Systems General: Reports: Weakness, Fatigue. Denies: Fever HEENT: Reports: No Symptoms Pulmonary: Denies: Shortness of Breath, Cough Cardiovascular: Denies: Chest Pain, Edema Gastrointestinal: Denies: Abdominal Pain, Nausea, Vomiting Musculoskeletal: Reports: Back Pain Skin: Reports: No Symptoms Neurological: Reports: No Symptoms - Patient Data Vitals - Most Recent: Last Vital Signs Temp 96.9 F 08/12/17 07:24 Pulse 97 08/12/17 08:10 Resp 16 08/12/17 07:24 BP 153/71 H 08/12/17 08:10 Pulse Ox 92 L 08/12/17 07:24 Weight - Most Recent: 217 lb Med Orders - Current: Current Medications Discontinued Medications Hydrocodone Bitart/Acetaminophen ([place] 325-5 Mg) 1 - 2 tab PO Q4H PRN PRN Reason: Pain (moderate 4-6) Last Admin: 08/12/17 06:16 Dose: 2 tab Cyclobenzaprine HCl (Flexeril) 5 mg PO Q8H PRN PRN Reason: Muscle Spasm Last Admin: 08/11/17 08:15 Dose: 5 mg Docusate Sodium (Colace) 100 mg PO BID [facility] Last Admin: 08/12/17 08:10 Dose: 100 mg Enoxaparin Sodium (Lovenox) 30 mg SUBCUT Q24H [facility] Last Admin: 08/11/17 12:11 Dose: Not Given Fentanyl (Sublimaze) 50 mcg IVPUSH Q8H [facility] Fentanyl (Sublimaze) 25 - 50 mcg IVPUSH Q6H PRN PRN Reason: Pain Fentanyl (Sublimaze) 50 mcg IVPUSH 0000,0800,1600 [facility] Last Admin: 08/12/17 08:20 Dose: 50 mcg Furosemide (Lasix) 40 mg PO DAILY [facility] Last Admin: 08/12/17 08:26 Dose: 40 mg Isosorbide Mononitrate (Imdur) 30 mg PO DAILY [facility] Last Admin: 08/12/17 08:10 Dose: 30 mg Levothyroxine Sodium (Synthroid) 50 mcg PO 0700 [facility] Last Admin: 08/12/17 06:16 Dose: 50 mcg Lisinopril (Prinivil) 20 mg PO DAILY [facility] Last Admin: 08/12/17 08:10 Dose: 20 mg Metoprolol Tartrate (Lopressor) 25 mg PO DAILY [facility] Last Admin: 08/12/17 08:10 Dose: 25 mg Ondansetron HCl (Zofran Odt) 4 mg PO Q4H PRN PRN Reason: nausea, able to take PO Ondansetron HCl (Zofran) 8 mg IV Q6H PRN PRN Reason: Nausea/Vomiting Oxybutynin Chloride (Oxybutynin) 5 mg PO TID [facility] Last Admin: 08/12/17 08:10 Dose: 5 mg Pantoprazole Sodium (Protonix) 40 mg PO ACBREAKFAST [facility] Last Admin: 08/12/17 06:16 Dose: 40 mg Polyethylene Glycol (Miralax) 17 gm PO DAILY [facility] Last Admin: 08/12/17 08:09 Dose: 17 gm Potassium Chloride (Klor-Con 10) 10 meq PO DAILY [facility] Last Admin: 08/12/17 08:10 Dose: 10 meq Simvastatin (Zocor) 40 mg PO DAILY@1999 [facility] Last Admin: 08/11/17 19:43 Dose: 40 mg Sodium Chloride (Saline Flush) 10 ml FLUSH ASDIRECTED PRN PRN Reason: Keep Vein Open Sodium Chloride (Saline Flush) 10 ml FLUSH ASDIRECTED PRN PRN Reason: Keep Vein Open Temazepam (Restoril) 15 mg PO BEDTIME PRN PRN Reason: Sleep - Exam General: Reports: Alert, Oriented HEENT: Reports: Mucous Membr. Moist/[place] Neck: Reports: Supple Lungs: Reports: Clear to Auscultation, Normal Respiratory Effort Cardiovascular: Reports: Regular Rate, Regular Rhythm GI/Abdominal Exam: Normal Bowel Sounds, Soft, Non-Tender Back Exam: Reports: Decreased Range of Motion, Vertebral Tenderness Extremities: Normal Inspection, No Pedal Edema Skin: Reports: Warm, Dry Neurological: Reports: No New Focal Deficit
== END 2017-08-12 09:45 | disposition home or self-care (01) | DRG 561 ==
LOC: CC.MS 09:46 → UNDOADMIN 10:32 → CC.MS 10:32
PROVIDERS: ADMIT Family Medicine; ATTEND Family Medicine
DX: S32.020D Wedge compression fracture of second lumbar vertebra, subsequent encounter for fracture with routine healing (principal); S32.030D Wedge compression fracture of third lumbar vertebra, subsequent encounter for fracture with routine healing; W19.XXXD Unspecified fall, subsequent encounter; I25.10 Atherosclerotic heart disease of native coronary artery without angina pectoris; D47.2 Monoclonal gammopathy; M15.9 Polyosteoarthritis, unspecified; K21.9 Gastro-esophageal reflux disease without esophagitis; E78.5 Hyperlipidemia, unspecified; I10 Essential (primary) hypertension; E03.9 Hypothyroidism, unspecified; M81.0 Age-related osteoporosis without current pathological fracture; N32.81 Overactive bladder; Z88.8 Allergy status to other drugs, medicaments and biological substances; Z79.82 Long term (current) use of aspirin; Z79.899 Other long term (current) drug therapy; Z96.659 Presence of unspecified artificial knee joint; S22.070D Wedge compression fracture of T9-T10 vertebra, subsequent encounter for fracture with routine healing; S22.080D Wedge compression fracture of T11-T12 vertebra, subsequent encounter for fracture with routine healing; Z79.01 Long term (current) use of anticoagulants; Z79.02 Long term (current) use of antithrombotics/antiplatelets
CPT/HCPCS: 97110-GP; A9270-GY; J1650; J3010

== ENCOUNTER 2017-10-24 14:35 | Inpatient (IN) | payer MEDICARE, BC ==
[2017-10-24] MEDS ORDERED: Ondansetron 8 MG in Sodium Chloride 0.9% 50 ML IV PRN (14:44)
[2017-10-24 15:04] LABS: CHLORIDE,CL 94 mEq/L (98-106); SODIUM,NA 130 mEq/L (136-145)
--- NOTE | 2017-10-24 16:04 | EDM.PDOC ---
ED HPI GENERAL MEDICAL PROBLEM - General Chief Complaint: General Stated Complaint: NAUSEA Time Seen by Provider: 10/24/17 15:50 Source of Information: Reports: Patient, Family (daughter) History Limitations: Reports: No Limitations - History of Present Illness INITIAL COMMENTS - FREE TEXT/NARRATIVE: Had Valcade on Saturday in [place] and was doing OK until early this morning when she started vomiting about 3:30, 4:30, and 6:30. Was given zofran about 7. They did contact [place] this morning and received a call back this afternoon after she vomited again at 1. She had ate some toast and tea without getting sic until 1. Zofran was then repeated but [place] wanted her checked out for dehydration so was brought into the ER. Onset: Today Location: Reports: Abdomen Treatments [employer]: Reports: Other (see below) Other Treatments [employer]: ZOFRAN - Related Data Allergies Allergy/AdvReac Type Severity Reaction Status Date / Time cortisone Allergy Hives Verified 10/24/17 15:27 Home Meds: Home Meds Furosemide 1 tab PO DAILY 10/10/14 [History] Isosorbide Mononitrate [Imdur] 1 tab PO DAILY 10/10/14 [History] Lisinopril 10 mg PO DAILY 10/10/14 [History] Metoprolol Tartrate [Lopressor] 1 tab PO BID 10/10/14 [History] Omeprazole 1 tab PO DAILY 10/10/14 [History] Oxybutynin 10 mg PO BID 10/10/14 [History] atorvaSTATin [Lipitor] 1 tab PO DAILY 10/10/14 [History] traMADol HCl [Tramadol HCl] 1 tab PO Q6H PRN 10/10/14 [History] Ascorbate Calcium [Vitamin C] 500 mg PO DAILY 08/05/17 [History] Calcium Carbonate/Vitamin D3 [Calcium 600-Vit D3 400 Tablet] 1 each PO DAILY [History] Cholecalciferol (Vitamin D3) [Vitamin D3] 1,000 units PO DAILY 08/05/17 [History ] Gluc/Emigdio-Msm#2/C/D3/Hitesh/Born [Icfzxguhvy-Ekvhnbipmwu-RIQ] 1 each PO BID [History] Levothyroxine Sodium [Levoxyl] 50 mcg PO DAILY 08/05/17 [History] Multivitamins [Tab-A-Brandi] 1 each PO DAILY 08/05/17 [History] Docusate Sodium [Colace] 100 mg PO BID cap 08/12/17 [Rx] Hydrocodone/Acetaminophen [Hydrocodon-Acetaminophen 5-325] 5 - 325 mg PO ASDIRECTED PRN #30 tablet 08/12/17 [Rx] Polyethylene Glycol 3350 [MiraLAX] 17 gm PO DAILY packet 08/12/17 [Rx] Bisacodyl [Dulcolax] 5 mg PO BEDTIME 10/24/17 [History] Dexamethasone 20 mg PO Q7D 10/24/17 [History] fentaNYL [Duragesic] 50 mcg TD Q3D 10/24/17 [History] valACYclovir HCl [Valtrex] 500 mg PO DAILY 10/24/17 [History] Past Medical History HEENT History: Reports: None Respiratory History: Reports: None Gastrointestinal History: Reports: None Genitourinary History: Reports: Urinary Incontinence Musculoskeletal History: Reports: Back Pain, Chronic Neurological History: Reports: None Endocrine/Metabolic History: Reports: Obesity/BMI 30+ Oncologic (Cancer) History: Reports: Other (See Below) Other Oncologic History: MULTIPLE MYELOMA - Past Surgical History Other Cardiovascular Surgeries/Procedures: STENT PLACEMENT. Vein stripping Musculoskeletal Surgical History: Reports: Knee Replacement Social & Family History - Family History Family Medical History: Noncontributory - Tobacco Use Smoking Status *Q: Never Smoker Second Hand Smoke Exposure: No ED ROS GENERAL - Review of Systems Review Of Systems: See Below Constitutional: Denies: Fever, Chills HEENT: Reports: No Symptoms Respiratory: Reports: No Symptoms Cardiovascular: Reports: No Symptoms Endocrine: Reports: Fatigue GI/Abdominal: Reports: Abdominal Pain, Nausea, Vomiting. Denies: Constipation, Diarrhea Skin: Reports: No Symptoms Neurological: Reports: No Symptoms ED EXAM, GENERAL - Physical Exam Exam: See Below Exam Limited By: No Limitations General Appearance: Alert, WD/WN, Moderate Distress Ears: Normal External Exam, Normal Canal, Normal TMs Nose: Normal Inspection Throat/Mouth: Normal Inspection, Normal Oropharynx, Normal Voice, No Airway Compromise Head: Atraumatic, Normocephalic Neck: Normal Inspection, Supple, Non-Tender, Full Range of Motion Respiratory/Chest: No Respiratory Distress, Lungs Clear, Normal Breath Sounds Cardiovascular: Normal Peripheral Pulses, Regular Rate, Rhythm GI/Abdominal: Soft, Abnormal Bowel Sounds (hyperactive throughout.). No: Guarding, Rigid Back Exam: Normal Inspection Extremities: Pedal Edema (from knees down. Daughter states that she had US done on Saturday when in [place] and had no clots.) Neurological: Alert, Oriented Skin Exam: Warm, Dry, Intact Course - Vital Signs Last Recorded V/S: Last Vital Signs Temp 98.4 F 10/24/17 15:04 Pulse 88 10/24/17 15:04 Resp 18 10/24/17 15:04 BP 126/74 10/24/17 15:04 Pulse Ox 96 10/24/17 15:04 - Orders/Labs/Meds Orders: Active Orders 24 hr Category Date Time Status Ondansetron [Zofran] 8 mg Med 10/24/17 14:44 Active Sodium Chloride 0.9% [Normal Saline] 50 ml IV Q8H Medication Orders Ondansetron HCl 8 mg/ Sodium (Chloride) 54 mls @ 100 mls/hr IV Q8H PRN PRN Reason: Nausea Last Admin: 10/24/17 15:00 Dose: 100 mls/hr Labs: Laboratory Tests 10/24/17 10/24/17 Range/Units 14:55 14:55 WBC 12.2 H (5.0-10.0) 10^3/uL RBC 4.05 (4.00-5.50) 10^6/uL Hgb 11.7 L (12.0-16.0) g/dL Hct 35.0 L (37.0-47.0) % MCV 86.4 (82.0-94.0) fL MCH 28.9 (27.0-32.0) pg MCHC 33.4 (33.0-38.0) g/dL RDW Coeff of [place] 15.9 H (11.0-15.0) % Plt Count 186 (150-400) 10^3/uL Neut % (Auto) 83.4 (35-85) % Lymph % (Auto) 11.1 (10-55) % [place] % (Auto) 5.2 (0-16) % Eos % (Auto) 0.2 (0-5) % Baso % (Auto) 0.1 (0-3) % Neut # (Auto) 10.18 H (1.80-7.00) 10^3/uL Lymph # (Auto) 1.35 (1.00-4.80) 10^3/uL [place] # (Auto) 0.63 (0.00-0.80) 10^3/uL Eos # (Auto) 0.03 (0.00-0.45) 10^3/uL Baso # (Auto) 0.01 10^3/uL Sodium 130 L (136-145) mEq/L Potassium 4.2 (3.5-5.0) mEq/L Chloride 94 L (98-106) mEq/L Carbon Dioxide 25 (21-32) mmol/L BUN 32 H D (7-18) mg/dL Creatinine 1.4 H (0.6-1.0) mg/dL Est Cr Clr Drug Dosing TNP Estimated GFR (MDRD) 36 L (>=60) mL/min Glucose 100 H (75-99) mg/dL Calcium 8.7 (8.4-10.1) mg/dL Meds: Medications Generic Name Dose Route Start Last Admin Trade Name Freq PRN Reason Stop Dose Admin Ondansetron HCl 8 mg/ Sodium 54 mls @ 100 mls/hr 10/24/17 14:44 10/24/17 15: 00 Chloride IV 100 mls/hr Q8H PRN Administration Nausea - Re-Assessments/Exams Free Text/Narrative Re-Assessment/Exam: 10/24/17 [address] Palmer and he agrees with admit and plan of care. She will be admitted acute to Dr. Palmer services. Departure - Departure Time of Disposition: 17:00 Disposition: Admitted As Inpatient 67 Condition: Fair Clinical Impression: Weakness Vomiting Qualifiers: Vomiting type: unspecified Vomiting Intractability: unspecified Nausea presence : with nausea Qualified Code(s): R11.2 - Nausea with vomiting, unspecified Multiple myeloma Qualifiers: Multiple myeloma remission status: not in remission Qualified Code(s): C90.00 - Multiple myeloma not having achieved remission - Discharge Information Referrals: Blayne Palmer MD [Primary Care Provider] - Additional Instructions: Admit Dr. Palmer service acute with IV fluids and Zofran - Problem List & Annotations (1) Vomiting SNOMED Code(s): 824783052 Code(s): R11.10 - VOMITING, UNSPECIFIED Status: Acute Current Visit: Yes (2) Weakness SNOMED Code(s): 68529528 Code(s): R53.1 - WEAKNESS Status: Acute Current Visit: Yes (3) Dehydration SNOMED Code(s): 46082444 Code(s): E86.0 - DEHYDRATION Status: Acute Current Visit: No (4) Multiple myeloma SNOMED Code(s): 301489086 Code(s): C90.00 - MULTIPLE MYELOMA NOT HAVING ACHIEVED REMISSION Status: Acute Current Visit: Yes - Problem List Review Problem List Initiated/Reviewed/Updated: Yes - My Orders Last 24 Hours: My Active Orders 10/24/17 14:44 Ondansetron [Zofran] 8 mg Sodium Chloride 0.9% [Normal Saline] 50 ml IV Q8H - Assessment/Plan Admission H&P: Please use this note as an admission H&P Last 24 Hours: My Active Orders 10/24/17 14:44 Ondansetron [Zofran] 8 mg Sodium Chloride 0.9% [Normal Saline] 50 ml IV Q8H Plan: Pt will be admitted to acute care to Dr. Palmer's service IV hydration Zofran to control the nausea. Up as tolerated with assistance Meds as ordered repeat labs in the am
[2017-10-24] MEDS ORDERED: fentaNYL 50 MCG/HR Transdermal Patch TRDERM SCH (17:25)
[2017-10-24] MEDS ORDERED: Dexamethasone 4 MG Tab PO SCH (17:25)
[2017-10-24] MEDS ORDERED: Acetaminophen/HYDROcodone 325-5 MG Tab PO PRN ×2 (17:25→21:22)
[2017-10-24] MEDS ORDERED: traMADol 50 MG Tab PO PRN (17:25)
[2017-10-24] MEDS ORDERED: Ondansetron 4 MG/2 ML SDV IV PRN (17:25)
[2017-10-24] MEDS: Sodium Chloride 0.9% 1,000 ML IV SCH (18:08)
[2017-10-24] MEDS: Docusate Sodium 100 MG Cap PO SCH (19:22)
[2017-10-24] MEDS: Bisacodyl 5 MG Tab PO SCH (19:23)
[2017-10-24] MEDS: Oxybutynin 5 MG Tab PO SCH (19:23)
[2017-10-24] MEDS: Metoprolol Tartrate 25 MG Tab PO SCH (19:31)
[2017-10-24] MEDS: Enoxaparin 40 MG/0.4 ML Syringe SUBCUT SCH (20:15)
[2017-10-24] MEDS: Sulfamethoxazole/Trimethoprim 800-160 MG Tab PO SCH (21:20)
[2017-10-25] MEDS: Sodium Chloride 0.9% 1,000 ML IV SCH ×2 (03:59→14:04)
[2017-10-25] MEDS: Pantoprazole 40 MG Tab.CR PO SCH (06:00)
[2017-10-25] MEDS: Levothyroxine 50 MCG Tab PO SCH (06:00)
[2017-10-25] MEDS: Oxybutynin 5 MG Tab PO SCH ×2 (08:59→19:53)
[2017-10-25] MEDS: Polyethylene Glycol 3350 Powder 17 GM Packet PO SCH (08:59)
[2017-10-25] MEDS: Isosorbide Mononitrate 30 MG Tab.ER PO SCH (09:00)
[2017-10-25] MEDS: Metoprolol Tartrate 25 MG Tab PO SCH ×2 (09:00→19:53)
[2017-10-25] MEDS: Sulfamethoxazole/Trimethoprim 800-160 MG Tab PO SCH (09:00)
[2017-10-25] MEDS: Furosemide 40 MG Tab PO SCH (09:00)
[2017-10-25] MEDS: valACYclovir 500 MG Tab PO SCH (09:00)
[2017-10-25] MEDS: Lisinopril 10 MG Tab PO SCH (09:00)
[2017-10-25] MEDS: Docusate Sodium 100 MG Cap PO SCH ×2 (09:00→19:53)
--- NOTE | 2017-10-25 10:02 | PCM.PN ---
- General Info Date of Service: 10/25/17 Admission Dx/Problem (Free Text): Weakness N/V Hyponatremia UTI Functional Status: Reports: Pain Controlled, Tolerating Diet, Ambulating - Review of Systems General: Reports: Weakness, Fatigue. Denies: Fever HEENT: Reports: No Symptoms Pulmonary: Denies: Shortness of Breath, Cough Cardiovascular: Denies: Chest Pain, Edema, Lightheadedness Gastrointestinal: Denies: Abdominal Pain, Nausea, Vomiting Genitourinary: Reports: Frequency Musculoskeletal: Reports: Back Pain Skin: Reports: No Symptoms Neurological: Reports: Weakness Psychiatric: Reports: No Symptoms - Patient Data Vitals - Most Recent: Last Vital Signs Temp 96.3 F 10/25/17 08:00 Pulse 78 10/25/17 09:00 Resp 20 10/25/17 08:00 BP 144/58 H 10/25/17 09:00 Pulse Ox 93 L 10/25/17 08:00 Weight - Most Recent: 200 lb I&O - Last 24 Hours: Intake & Output 10/24/17 10/25/17 10/25/17 22:59 06:59 14:59 Intake Total 0 1235 Output Total 0 1050 Balance 0 185 Lab Results Last 24 Hours: Laboratory Results - last 24 hr 10/24/17 10/24/17 10/24/17 Range/Units 14:55 14:55 19:45 WBC 12.2 H (5.0-10.0) 10^3/uL RBC 4.05 (4.00-5.50) 10^6/uL Hgb 11.7 L (12.0-16.0) g/dL Hct 35.0 L (37.0-47.0) % MCV 86.4 (82.0-94.0) fL MCH 28.9 (27.0-32.0) pg MCHC 33.4 (33.0-38.0) g/dL RDW Coeff of Cameron 15.9 H (11.0-15.0) % Plt Count 186 (150-400) 10^3/uL Neut % (Auto) 83.4 (35-85) % Lymph % (Auto) 11.1 (10-55) % [place] % (Auto) 5.2 (0-16) % Eos % (Auto) 0.2 (0-5) % Baso % (Auto) 0.1 (0-3) % Neut # (Auto) 10.18 H (1.80-7.00) 10^3/uL Lymph # (Auto) 1.35 (1.00-4.80) 10^3/uL [place] # (Auto) 0.63 (0.00-0.80) 10^3/uL Eos # (Auto) 0.03 (0.00-0.45) 10^3/uL Baso # (Auto) 0.01 10^3/uL Sodium 130 L (136-145) mEq/L Potassium 4.2 (3.5-5.0) mEq/L Chloride 94 L (98-106) mEq/L Carbon Dioxide 25 (21-32) mmol/L BUN 32 H D (7-18) mg/dL Creatinine 1.4 H (0.6-1.0) mg/dL Est Cr Clr Drug Dosing TNP Estimated GFR (MDRD) 36 L (>=60) mL/min Glucose 100 H (75-99) mg/dL Calcium 8.7 (8.4-10.1) mg/dL Total Bilirubin (0.0-1.0) mg/dL AST (15-37) U/L ALT (12-78) U/L Alkaline Phosphatase (46-116) U/L Total Protein (6.4-8.2) g/dL Albumin (3.4-5.0) g/dL Urine Color Yellow (YELLOW) Urine Appearance Slightly cloudy (CLEAR) Urine pH 5.5 (4.5-8.0) Ur Specific [place] 1.010 (1.003-1.020) Urine Protein Negative (NEGATIVE) mg/dL Urine Glucose (UA) Negative (NEGATIVE) mg/dL Urine Ketones Negative (NEGATIVE) mg/dL Urine Occult Blood Negative (NEGATIVE) Urine Nitrite Negative (NEGATIVE) Urine Bilirubin Negative (NEGATIVE) Urine Urobilinogen 0.2 (0.2-1.0) EU/dL Ur Leukocyte Esterase Moderate H (NEGATIVE) Urine RBC Not seen (0-5) /HPF Urine WBC 20-30 H (0-5) /HPF Ur Squamous Epith Cells Few H (NOT SEEN) /HPF Urine Bacteria Moderate H (NOT SEEN) /HPF 10/25/17 10/25/17 Range/Units 07:05 07:05 WBC 7.7 (5.0-10.0) 10^3/uL RBC 3.96 L (4.00-5.50) 10^6/uL Hgb 11.3 L (12.0-16.0) g/dL Hct 34.7 L (37.0-47.0) % MCV 87.6 (82.0-94.0) fL MCH 28.5 (27.0-32.0) pg MCHC 32.6 L (33.0-38.0) g/dL RDW Coeff of Cameron 16.1 H (11.0-15.0) % Plt Count 167 (150-400) 10^3/uL Neut % (Auto) 74.9 (35-85) % Lymph % (Auto) 15.8 (10-55) % [place] % (Auto) 8.8 (0-16) % Eos % (Auto) 0.4 (0-5) % Baso % (Auto) 0.1 (0-3) % Neut # (Auto) 5.79 (1.80-7.00) 10^3/uL Lymph # (Auto) 1.22 (1.00-4.80) 10^3/uL [place] # (Auto) 0.68 (0.00-0.80) 10^3/uL Eos # (Auto) 0.03 (0.00-0.45) 10^3/uL Baso # (Auto) 0.01 10^3/uL Sodium 137 (136-145) mEq/L Potassium 4.2 (3.5-5.0) mEq/L Chloride 102 (98-106) mEq/L Carbon Dioxide 25 (21-32) mmol/L BUN 22 H (7-18) mg/dL Creatinine 1.0 (0.6-1.0) mg/dL Est Cr Clr Drug Dosing 40.38 Estimated GFR (MDRD) 53 L (>=60) mL/min Glucose 88 (75-99) mg/dL Calcium 8.4 (8.4-10.1) mg/dL Total Bilirubin 0.4 (0.0-1.0) mg/dL AST 15 (15-37) U/L ALT 25 (12-78) U/L Alkaline Phosphatase 126 H (46-116) U/L Total Protein 6.1 L (6.4-8.2) g/dL Albumin 2.9 L (3.4-5.0) g/dL Urine Color (YELLOW) Urine Appearance (CLEAR) Urine pH (4.5-8.0) Ur Specific [place] (1.003-1.020) Urine Protein (NEGATIVE) mg/dL Urine Glucose (UA) (NEGATIVE) mg/dL Urine Ketones (NEGATIVE) mg/dL Urine Occult Blood (NEGATIVE) Urine Nitrite (NEGATIVE) Urine Bilirubin (NEGATIVE) Urine Urobilinogen (0.2-1.0) EU/dL Ur Leukocyte Esterase (NEGATIVE) Urine RBC (0-5) /HPF Urine WBC (0-5) /HPF Ur Squamous Epith Cells (NOT SEEN) /HPF Urine Bacteria (NOT SEEN) /HPF Armand Results Last 24 Hours: Microbiology 10/24/17 19:45 Urine Culture - Preliminary Urine, Voided Gram Negative Rods Med Orders - Current: Current Medications Hydrocodone Bitart/Acetaminophen ([place] 325-5 Mg) 1 tab PO Q4H PRN PRN Reason: Pain Bisacodyl (Dulcolax) 5 mg PO BEDTIME [facility] Last Admin: 10/24/17 19:23 Dose: 5 mg Ceftriaxone Sodium (Rocephin) 1 gm IVPUSH Q24H [facility] Dexamethasone (Dexamethasone) 20 mg PO Q7D [facility] Docusate Sodium (Colace) 100 mg PO BID [facility] Last Admin: 10/25/17 09:00 Dose: 100 mg Enoxaparin Sodium (Lovenox) 40 mg SUBCUT Q24H [facility] Last Admin: 10/24/17 20:15 Dose: 40 mg Fentanyl (Duragesic) 50 mcg TRDERM Q3D [facility] Furosemide (Lasix) 40 mg PO DAILY [facility] Last Admin: 10/25/17 09:00 Dose: 40 mg Ondansetron HCl 8 mg/ Sodium (Chloride) 54 mls @ 100 mls/hr IV Q8H PRN PRN Reason: Nausea Last Admin: 10/24/17 15:00 Dose: 100 mls/hr Sodium Chloride (Normal Saline) 1,000 mls @ 50 mls/hr IV ASDIRECTED [facility] Last Admin: 10/25/17 03:59 Dose: 100 mls/hr Isosorbide Mononitrate (Imdur) 30 mg PO DAILY [facility] Last Admin: 10/25/17 09:00 Dose: 30 mg Levothyroxine Sodium (Synthroid) 50 mcg PO ACBREAKFAST [facility] Last Admin: 10/25/17 06:00 Dose: 50 mcg Lisinopril (Prinivil) 10 mg PO DAILY [facility] Last Admin: 10/25/17 09:00 Dose: 10 mg Metoprolol Tartrate (Lopressor) 25 mg PO BID [facility] Last Admin: 10/25/17 09:00 Dose: 25 mg Ondansetron HCl (Zofran) 8 mg IV Q6H PRN PRN Reason: Nausea/Vomiting Last Admin: 10/24/17 18:16 Dose: 8 mg Oxybutynin Chloride (Oxybutynin) 10 mg PO BID [facility] Last Admin: 10/25/17 08:59 Dose: 10 mg Pantoprazole Sodium (Protonix) 40 mg PO ACBREAKFAST [facility] Last Admin: 10/25/17 06:00 Dose: 40 mg Polyethylene Glycol (Miralax) 17 gm PO DAILY [facility] Last Admin: 10/25/17 08:59 Dose: 17 gm Tramadol HCl (Ultram) 50 mg PO Q6H PRN PRN Reason: Pain Valacyclovir HCl (Valtrex) 500 mg PO DAILY [facility] Last Admin: 10/25/17 09:00 Dose: 500 mg Discontinued Medications Hydrocodone Bitart/Acetaminophen ([place] 325-5 Mg) 1 tab PO Q4H PRN PRN Reason: Pain Dexamethasone (Dexamethasone) 20 mg PO Q7D [facility] Last Admin: 10/24/17 17:47 Dose: Not Given Fentanyl (Duragesic) 50 mcg TRDERM Q3D [facility] Last Admin: 10/24/17 17:47 Dose: Not Given Trimethoprim/Sulfamethoxazole (Septra Ds) 1 tab PO BID [facility] Last Admin: 10/25/17 09:00 Dose: 1 tab - Exam General: Alert, Oriented HEENT: Mucous Membr. Moist/[place] Neck: Supple Lungs: Clear to Auscultation, Normal Respiratory Effort Cardiovascular: Regular Rate, Regular Rhythm GI/Abdominal Exam: Normal Bowel Sounds, Soft, Non-Tender Extremities: Normal Inspection, No Pedal Edema Skin: Warm, Dry Neurological: No New Focal Deficit - Problem List & Annotations (1) Hyponatremia SNOMED Code(s): 37880824 Code(s): E87.1 - HYPO-OSMOLALITY AND HYPONATREMIA Status: Acute Priority : High Current Visit: Yes (2) Multiple myeloma SNOMED Code(s): 170979696 Code(s): C90.00 - MULTIPLE MYELOMA NOT HAVING ACHIEVED REMISSION Status: Acute Priority: High Current Visit: Yes Qualifiers: Multiple myeloma remission status: not in remission Qualified Code(s): C90.00 - Multiple myeloma not having achieved remission (3) Vomiting SNOMED Code(s): 498363643 Code(s): R11.10 - VOMITING, UNSPECIFIED Status: Acute Priority: High Current Visit: Yes Qualifiers: Nausea presence: with nausea (4) Weakness SNOMED Code(s): 74340702 Code(s): R53.1 - WEAKNESS Status: Acute Priority: High Current Visit: Yes (5) UTI (urinary tract infection) SNOMED Code(s): 94135968 Code(s): N39.0 - URINARY TRACT INFECTION, SITE NOT SPECIFIED Status: Acute Priority: High Current Visit: Yes Qualifiers: Encounter type: initial encounter - Problem List Review Problem List Initiated/Reviewed/Updated: Yes - My Orders Last 24 Hours: My Active Orders 10/25/17 10:00 cefTRIAXone [Rocephin] 1 gm IVPUSH Q24H - Assessment Assessment:: Weakness Hyponatremia UTI Multiple Myeloma Vomiting - Plan Plan:: Patient remains weak but has not vomited since last evening around 6 pm. She is on her 5th cycle of Valcade and is due to get an additional medication next week for stabilization of the bones. She has pain in her side, back pain is better. She denies much burning with urination. No abdominal pain. No nausea at present. Has been receiving IV fluids, NS, at 100 ml/hr. Sodium has improved to 137 today. She does have initial urine culture noted to show greater than 100,000 gram negative rods. WBC improved today to 7.7 Will stop Bactrim and start Rocephin today. Reduce IV fluid rate. Encourage to be up and ambulate today if able.
[2017-10-25] MEDS: cefTRIAXone 1 GM Vial IVPUSH SCH (10:34)
[2017-10-25] MEDS: Bisacodyl 5 MG Tab PO SCH (19:53)
[2017-10-25] MEDS: Enoxaparin 40 MG/0.4 ML Syringe SUBCUT SCH (20:08)
[2017-10-26] MEDS: Pantoprazole 40 MG Tab.CR PO SCH (06:42)
[2017-10-26] MEDS: Levothyroxine 50 MCG Tab PO SCH (06:42)
[2017-10-26] MEDS: Oxybutynin 5 MG Tab PO SCH (07:48)
[2017-10-26] MEDS: Metoprolol Tartrate 25 MG Tab PO SCH (07:48)
[2017-10-26] MEDS: Docusate Sodium 100 MG Cap PO SCH (07:48)
[2017-10-26] MEDS: Lisinopril 10 MG Tab PO SCH (07:48)
[2017-10-26] MEDS: Furosemide 40 MG Tab PO SCH (07:49)
[2017-10-26] MEDS: Isosorbide Mononitrate 30 MG Tab.ER PO SCH (07:49)
[2017-10-26] MEDS: valACYclovir 500 MG Tab PO SCH (07:49)
[2017-10-26] MEDS: Polyethylene Glycol 3350 Powder 17 GM Packet PO SCH (07:49)
[2017-10-26 07:51] VITALS: BP 138/64
[2017-10-26] MEDS: cefTRIAXone 1 GM Vial IVPUSH SCH (10:17)
[2017-10-26] MEDS ORDERED: fentaNYL 50 MCG/HR Transdermal Patch TRDERM SCH (12:00)
--- NOTE | 2017-10-26 12:12 | PCM.DCSUM1 ---
Discharge Summary - Hospital Course HPI Initial Comments: Patient will be discharged home with home health. Diagnosis: Stroke: No - Discharge Data Discharge Disposition: Home, Self-Care 01 Condition: Fair - Discharge Diagnosis/Problem(s) (1) Multiple myeloma SNOMED Code(s): 086285086 ICD Code: C90.00 - MULTIPLE MYELOMA NOT HAVING ACHIEVED REMISSION Status: Acute Priority: High Current Visit: Yes Qualifiers: Multiple myeloma remission status: not in remission Qualified Code(s): C90.00 - Multiple myeloma not having achieved remission (2) UTI (urinary tract infection) SNOMED Code(s): 74275060 ICD Code: N39.0 - URINARY TRACT INFECTION, SITE NOT SPECIFIED Status: Acute Priority: High Current Visit: Yes Qualifiers: Encounter type: initial encounter (3) Vomiting SNOMED Code(s): 604486591 ICD Code: R11.10 - VOMITING, UNSPECIFIED Status: Acute Priority: High Current Visit: Yes Qualifiers: Nausea presence: with nausea (4) Weakness SNOMED Code(s): 02411730 ICD Code: R53.1 - WEAKNESS Status: Acute Priority: High Current Visit: Yes (5) Dehydration SNOMED Code(s): 54266670 ICD Code: E86.0 - DEHYDRATION Status: Acute Current Visit: No - Patient Instructions Diet: Usual Diet as Tolerated Activity: As Tolerated, No Strenuous Activities, Rest and Relax Today Notify Provider of: Fever, Increased Pain, Nausea and/or Vomiting - Discharge Plan *PRESCRIPTION DRUG MONITORING PROGRAM REVIEWED*: Not Applicable *COPY OF PRESCRIPTION DRUG MONITORING REPORT IN PATIENT JUAN C: Not Applicable Prescriptions/Med Rec: Nitrofurantoin Monohyd/M-Cryst [Macrobid 100 mg Capsule] 100 mg PO BID 5 Days # 10 capsule Home Medications: Home Meds Furosemide 1 tab PO DAILY 10/10/14 [History] Isosorbide Mononitrate [Imdur] 1 tab PO DAILY 10/10/14 [History] Lisinopril 10 mg PO DAILY 10/10/14 [History] Metoprolol Tartrate [Lopressor] 1 tab PO BID 10/10/14 [History] Omeprazole 1 tab PO DAILY 10/10/14 [History] Oxybutynin 10 mg PO BID 10/10/14 [History] atorvaSTATin [Lipitor] 1 tab PO DAILY 10/10/14 [History] traMADol HCl [Tramadol HCl] 1 tab PO Q6H PRN 10/10/14 [History] Ascorbate Calcium [Vitamin C] 500 mg PO DAILY 08/05/17 [History] Calcium Carbonate/Vitamin D3 [Calcium 600-Vit D3 400 Tablet] 1 each PO DAILY [History] Cholecalciferol (Vitamin D3) [Vitamin D3] 1,000 units PO DAILY 08/05/17 [History ] Gluc/Emigdio-Msm#2/C/D3/Hitesh/Born [Wkudbyhekp-Ohxoidrgbyy-ZBO] 1 each PO BID [History] Levothyroxine Sodium [Levoxyl] 50 mcg PO DAILY 08/05/17 [History] Multivitamins [Tab-A-Brandi] 1 each PO DAILY 08/05/17 [History] Docusate Sodium [Colace] 100 mg PO BID cap 08/12/17 [Rx] Hydrocodone/Acetaminophen [Hydrocodon-Acetaminophen 5-325] 5 - 325 mg PO ASDIRECTED PRN #30 tablet 08/12/17 [Rx] Polyethylene Glycol 3350 [MiraLAX] 17 gm PO DAILY packet 08/12/17 [Rx] Bisacodyl [Dulcolax] 5 mg PO BEDTIME 10/24/17 [History] Dexamethasone 20 mg PO Q7D 10/24/17 [History] fentaNYL [Duragesic] 50 mcg TD Q3D 10/24/17 [History] valACYclovir HCl [Valtrex] 500 mg PO DAILY 10/24/17 [History] Nitrofurantoin Monohyd/M-Cryst [Macrobid 100 mg Capsule] 100 mg PO BID 5 Days # 10 capsule 10/26/17 [Rx] Patient Handouts: Urinary Tract Infection, Adult, [id number]-[id number] Forms: ED Department Discharge Referrals: Blayne Palmer MD [Primary Care Provider] - - Patient Data Vitals - Most Recent: Last Vital Signs Temp 98.0 F 10/26/17 08:00 Pulse 82 10/26/17 08:00 Resp 16 10/26/17 08:00 BP 138/64 10/26/17 08:00 Pulse Ox 96 10/26/17 08:00 Weight - Most Recent: 200 lb I&O - Last 24 hours: Intake & Output 07/13/18 07/14/18 07/14/18 22:59 06:59 14:59 Intake Total 200 400 Output Total 900 225 Balance 200 -500 -225 JOSH Results - Last 24 hrs: Microbiology 10/24/17 19:45 Urine Culture - Final Urine, Voided Escherichia Coli Med Orders - Current: Current Medications Hydrocodone Bitart/Acetaminophen ([place] 325-5 Mg) 1 tab PO Q4H PRN PRN Reason: Pain Last Admin: 10/26/17 07:51 Dose: 1 tab Bisacodyl (Dulcolax) 5 mg PO BEDTIME [facility] Last Admin: 10/25/17 19:53 Dose: 5 mg Ceftriaxone Sodium (Rocephin) 1 gm IVPUSH Q24H [facility] Last Admin: 10/26/17 10:17 Dose: 1 gm Dexamethasone (Dexamethasone) 20 mg PO Q7D [facility] Docusate Sodium (Colace) 100 mg PO BID [facility] Last Admin: 10/26/17 07:48 Dose: 100 mg Enoxaparin Sodium (Lovenox) 40 mg SUBCUT Q24H [facility] Last Admin: 10/25/17 20:08 Dose: 40 mg Fentanyl (Duragesic) 50 mcg TRDERM Q3D [facility] Furosemide (Lasix) 40 mg PO DAILY [facility] Last Admin: 10/26/17 07:49 Dose: 40 mg Ondansetron HCl 8 mg/ Sodium (Chloride) 54 mls @ 100 mls/hr IV Q8H PRN PRN Reason: Nausea Last Admin: 10/24/17 15:00 Dose: 100 mls/hr Sodium Chloride (Normal Saline) 1,000 mls @ 50 mls/hr IV ASDIRECTED [facility] Last Admin: 10/25/17 14:04 Dose: 100 mls/hr Isosorbide Mononitrate (Imdur) 30 mg PO DAILY [facility] Last Admin: 10/26/17 07:49 Dose: 30 mg Levothyroxine Sodium (Synthroid) 50 mcg PO ACBREAKFAST [facility] Last Admin: 10/26/17 06:42 Dose: 50 mcg Lisinopril (Prinivil) 10 mg PO DAILY [facility] Last Admin: 10/26/17 07:48 Dose: 10 mg Metoprolol Tartrate (Lopressor) 25 mg PO BID [facility] Last Admin: 10/26/17 07:48 Dose: 25 mg Ondansetron HCl (Zofran) 8 mg IV Q6H PRN PRN Reason: Nausea/Vomiting Last Admin: 10/24/17 18:16 Dose: 8 mg Oxybutynin Chloride (Oxybutynin) 10 mg PO BID [facility] Last Admin: 10/26/17 07:48 Dose: 10 mg Pantoprazole Sodium (Protonix) 40 mg PO ACBREAKFAST [facility] Last Admin: 10/26/17 06:42 Dose: 40 mg Polyethylene Glycol (Miralax) 17 gm PO DAILY [facility] Last Admin: 10/26/17 07:49 Dose: 17 gm Tramadol HCl (Ultram) 50 mg PO Q6H PRN PRN Reason: Pain Last Admin: 10/26/17 04:10 Dose: 50 mg Valacyclovir HCl (Valtrex) 500 mg PO DAILY [facility] Last Admin: 10/26/17 07:49 Dose: 500 mg Discontinued Medications Hydrocodone Bitart/Acetaminophen ([place] 325-5 Mg) 1 tab PO Q4H PRN PRN Reason: Pain Dexamethasone (Dexamethasone) 20 mg PO Q7D [facility] Last Admin: 10/24/17 17:47 Dose: Not Given Fentanyl (Duragesic) 50 mcg TRDERM Q3D [facility] Last Admin: 10/24/17 17:47 Dose: Not Given Trimethoprim/Sulfamethoxazole (Septra Ds) 1 tab PO BID [facility] Last Admin: 10/25/17 09:00 Dose: 1 tab
[2017-10-26] MEDS ORDERED: Glucagon,Human Recombinant 1 MG Vial IM STA (13:30)
[2017-10-26] MEDS ORDERED: Glucagon,Human Recombinant 1 MG Vial ONE (13:40)
[2017-10-29] MEDS ORDERED: Dexamethasone 4 MG Tab PO SCH (08:00)
== END 2017-10-26 15:05 | disposition home or self-care (01) | DRG 641 ==
LOC: CC.ED 14:35 → CC.MS 17:08
PROVIDERS: ADMIT Physician Assistant Medical; ATTEND Family Medicine
DX: E86.0 Dehydration (principal); C90.00 Multiple myeloma not having achieved remission; N39.0 Urinary tract infection, site not specified; E87.1 Hypo-osmolality and hyponatremia; R32 Unspecified urinary incontinence; G89.29 Other chronic pain; M54.9 Dorsalgia, unspecified; E66.9 Obesity, unspecified; Z68.33 Body mass index [BMI] 33.0-33.9, adult; Z88.8 Allergy status to other drugs, medicaments and biological substances; Z79.899 Other long term (current) drug therapy; R53.83 Other fatigue; R10.9 Unspecified abdominal pain; R53.1 Weakness; R11.2 Nausea with vomiting, unspecified; Z96.9 Presence of functional implant, unspecified; Z96.659 Presence of unspecified artificial knee joint
CPT/HCPCS: 36415; 80048; 80053; 81001; 85025; 87086; 87088; 87186; 96365; 99284; A9270-GY; J0696; J1610; J1650; J2405; J7030; J7050

== ENCOUNTER 2020-05-16 11:26 | Observation (INO) | payer MEDICARE, BC ==
[2020-05-16 12:15] LABS: CORONAVIRUS COVID-19 NAA NEGATIVE (NEGATIVE)
[2020-05-16] MEDS ORDERED: Ondansetron 4 MG Tab.DIS PO PRN (14:07)
[2020-05-16] MEDS ORDERED: Polyethylene Glycol 3350 Powder 17 GM Packet PO PRN (14:10)
[2020-05-16] MEDS ORDERED: Bisacodyl 5 MG Tab PO PRN (14:10)
[2020-05-16] MEDS ORDERED: Sodium Chloride 0.9% 1,000 ML IV SCH (14:15)
[2020-05-16] MEDS: oxyCODONE 5 MG Tab PO PRN (15:12)
[2020-05-16] MEDS ORDERED: HYDROmorphone 1 MG/ML Syringe IVPUSH PRN (18:22)
[2020-05-16] MEDS: HYDROmorphone 1 MG/ML Syringe IVPUSH PRN (18:35)
[2020-05-16] MEDS: Enoxaparin 40 MG/0.4 ML Syringe SUBCUT SCH (19:13)
[2020-05-16] MEDS: Docusate Sodium 100 MG Cap PO SCH (19:13)
[2020-05-16] MEDS: OXYBUTYNIN 5 MG PO SCH (19:15)
[2020-05-17] MEDS: HYDROmorphone 1 MG/ML Syringe IVPUSH PRN (01:30)
[2020-05-17] MEDS: OMEPRAZOLE 20 MG PO SCH (06:25)
[2020-05-17] MEDS: oxyCODONE 5 MG Tab PO PRN (06:38)
[2020-05-17] MEDS: POTASSIUM CHLORIDE 20 MEQ PO SCH (07:33)
[2020-05-17] MEDS: ISOSORBIDE MONONITRATE 30 MG PO SCH (07:34)
[2020-05-17] MEDS: ATORVASTATIN 80 MG PO SCH (07:34)
[2020-05-17] MEDS: OXYBUTYNIN 5 MG PO SCH ×2 (07:34→19:40)
[2020-05-17] MEDS: Docusate Sodium 100 MG Cap PO SCH ×2 (07:37→19:39)
[2020-05-17] MEDS ORDERED: fentaNYL 12 MCG/HR Transdermal Patch TRDERM SCH (08:15)
--- NOTE | 2020-05-17 09:10 | PCM.PN ---
- General Info Date of Service: 05/17/20 Subjective Update: Maday is an 84 yo female with known history of multiple myeloma that does see Dr. Mitchell for treatment. Was seen in the clinic by Dr. Palmer yesterday with weight loss and decreased appetite the last few weeks. She has been on chemo since 2018 and doesn't feel this has lead to anything. Admitted yesterday her whole body was achy. Patient does have known chronic pain. Laboratory work did show low sodium and concerns of dehydration. Dr. Palmer did admit for IV fluids. Patient had CT of the brain yesterday secondary to lumps on her head. Report was pending this morning. She denies any new onset of symptoms today. States she would like to get better so she can go home to her and dogs. Functional Status: Reports: Tolerating Diet. Denies: New Symptoms - Review of Systems General: Reports: Weakness, Fatigue HEENT: Reports: No Symptoms Pulmonary: Reports: No Symptoms Cardiovascular: Reports: No Symptoms Gastrointestinal: Reports: No Symptoms Genitourinary: Reports: No Symptoms Musculoskeletal: Reports: No Symptoms Neurological: Reports: Headache - Patient Data Vitals - Most Recent: Last Vital Signs Temp 97.3 F 05/17/20 07:38 Pulse 102 H 05/17/20 07:38 Resp 18 05/17/20 07:38 BP 143/82 H 05/17/20 07:38 Pulse Ox 98 05/17/20 07:38 Weight - Most Recent: 143 lb Lab Results Last 24 Hours: Laboratory Results - last 24 hr 05/16/20 05/16/20 05/17/20 Range/Units 12:14 14:07 07:28 WBC 8.1 (5.0-10.0) 10^3/uL RBC 3.36 L (4.00-5.50) 10^6/uL Hgb 10.2 L (12.0-16.0) g/dL Hct 31.6 L (37.0-47.0) % MCV 94.0 (82.0-94.0) fL MCH 30.4 (27.0-32.0) pg MCHC 32.3 L (33.0-38.0) g/dL RDW Coeff of Cameron 16.3 H (11.0-15.0) % Plt Count 151 (150-400) 10^3/uL Neut % (Auto) 80.2 (35-85) % Lymph % (Auto) 9.6 L (10-55) % [place] % (Auto) 7.8 (0-16) % Eos % (Auto) 2.2 (0-5) % Baso % (Auto) 0.2 (0-3) % Neut # (Auto) 6.51 (1.80-7.00) 10^3/uL Lymph # (Auto) 0.78 L (1.00-4.80) 10^3/uL [place] # (Auto) 0.63 (0.00-0.80) 10^3/uL Eos # (Auto) 0.18 (0.00-0.45) 10^3/uL Baso # (Auto) 0.02 10^3/uL Sodium (136-145) mEq/L Potassium (3.5-5.0) mEq/L Chloride (98-106) mEq/L Carbon Dioxide (21-32) mmol/L BUN (7-18) mg/dL Creatinine (0.6-1.0) mg/dL Est Cr Clr Drug Dosing mL/min Estimated GFR (MDRD) (>=60) mL/min Glucose (75-99) mg/dL Calcium (8.4-10.1) mg/dL Magnesium 1.9 (1.8-2.4) mg/dL Total Bilirubin (0.0-1.0) mg/dL AST (15-37) U/L ALT (12-78) U/L Alkaline Phosphatase (46-116) U/L Total Protein (6.4-8.2) g/dL Albumin (3.4-5.0) g/dL Influenza Type A RNA Negative (NEGATIVE) RSV RNA (INAAT) Cancelled Influenza Type B RNA Negative (NEGATIVE) SARS-CoV-2 RNA (SHAHEEN) Negative (NEGATIVE) 05/17/20 Range/Units 07:28 WBC (5.0-10.0) 10^3/uL RBC (4.00-5.50) 10^6/uL Hgb (12.0-16.0) g/dL Hct (37.0-47.0) % MCV (82.0-94.0) fL MCH (27.0-32.0) pg MCHC (33.0-38.0) g/dL RDW Coeff of Cameron (11.0-15.0) % Plt Count (150-400) 10^3/uL Neut % (Auto) (35-85) % Lymph % (Auto) (10-55) % Divide % (Auto) (0-16) % Eos % (Auto) (0-5) % Baso % (Auto) (0-3) % Neut # (Auto) (1.80-7.00) 10^3/uL Lymph # (Auto) (1.00-4.80) 10^3/uL Divide # (Auto) (0.00-0.80) 10^3/uL Eos # (Auto) (0.00-0.45) 10^3/uL Baso # (Auto) 10^3/uL Sodium 137 (136-145) mEq/L Potassium 4.5 (3.5-5.0) mEq/L Chloride 102 (98-106) mEq/L Carbon Dioxide 23 (21-32) mmol/L BUN 17 (7-18) mg/dL Creatinine 0.9 (0.6-1.0) mg/dL Est Cr Clr Drug Dosing 42.62 mL/min Estimated GFR (MDRD) 60 (>=60) mL/min Glucose 103 H (75-99) mg/dL Calcium 8.9 (8.4-10.1) mg/dL Magnesium (1.8-2.4) mg/dL Total Bilirubin 0.8 (0.0-1.0) mg/dL AST 79 H (15-37) U/L ALT 58 (12-78) U/L Alkaline Phosphatase 224 H (46-116) U/L Total Protein 6.7 (6.4-8.2) g/dL Albumin 2.5 L (3.4-5.0) g/dL Influenza Type A RNA (NEGATIVE) RSV RNA (INAAT) Influenza Type B RNA (NEGATIVE) SARS-CoV-2 RNA (SHAHEEN) (NEGATIVE) Med Orders - Current: Current Medications Acetaminophen (Tylenol) 650 mg PO Q4H PRN PRN Reason: Pain (Mild 1-3)/fever Bisacodyl (Dulcolax) 5 mg PO BEDTIME PRN PRN Reason: Constipation Docusate Sodium (Colace) 100 mg PO BID [facility] Last Admin: 02/02/21 07:37 Dose: 100 mg Documented by: Enoxaparin Sodium (Lovenox) 40 mg SUBCUT Q24H [facility] Last Admin: 05/16/20 19:13 Dose: 40 mg Documented by: Fentanyl (Duragesic) 12 mcg TRDERM Q72H [facility] Last Admin: 05/17/20 08:40 Dose: 12 mcg Documented by: Isosorbide Mononitrate (Imdur) 30 mg PO DAILY [facility] Last Admin: 05/17/20 07:34 Dose: 30 mg Documented by: Levothyroxine Sodium (Synthroid) 50 mcg PO ACBREAKFAST [facility] Last Admin: 05/17/20 06:26 Dose: 50 mcg Documented by: Metoprolol Tartrate (Lopressor) 25 mg PO BIDMEALS [facility] Last Admin: 05/17/20 07:33 Dose: 25 mg Documented by: Atorvastatin [ Lipitor] 80 Mg Tab * *Ptom 0 mg PO DAILY [facility] Last Admin: 05/17/20 07:34 Dose: 80 mg Documented by: Potassium Chloride [ Potassium Chloride] 20 Meq Tab Ptom 0 meq PO DAILY [facility] Last Admin: 05/17/20 07:33 Dose: 40 meq Documented by: Omeprazole [ Omeprazole] 20 Mg Cap Ptom 0 mg PO ACBREAKFAST [facility] Last Admin: 05/17/20 06:25 Dose: 20 mg Documented by: Ondansetron HCl (Zofran Odt) 4 mg PO Q4H PRN PRN Reason: nausea, able to take PO Oxybutynin Chloride (Oxybutynin) 10 mg PO BID [facility] Last Admin: 05/17/20 07:34 Dose: 10 mg Documented by: Oxycodone HCl (Oxycodone) 5 mg PO Q4H PRN PRN Reason: Breakthrough Pain Last Admin: 05/17/20 06:38 Dose: 5 mg Documented by: Polyethylene Glycol (Miralax) 17 gm PO DAILY PRN PRN Reason: Constipation Tramadol HCl (Ultram) 50 mg PO BID [facility] Last Admin: 05/17/20 07:32 Dose: 50 mg Documented by: Valacyclovir HCl (Valtrex) 500 mg PO DAILY@1730 [facility] Discontinued Medications Hydromorphone HCl (Dilaudid) 1 mg IVPUSH Q2H PRN PRN Reason: Pain Last Admin: 05/17/20 01:30 Dose: 1 mg Documented by: Hydromorphone HCl (Dilaudid) 1 mg IVPUSH Q2H PRN PRN Reason: Pain Sodium Chloride (Normal Saline) 1,000 mls @ 75 mls/hr IV ASDIRECTED [facility] Last Admin: 05/16/20 15:12 Dose: 75 mls/hr Documented by: - Exam General: Alert, Oriented, Cooperative Lungs: Clear to Auscultation, Normal Respiratory Effort Cardiovascular: Regular Rate, Regular Rhythm, No Murmurs GI/Abdominal Exam: Normal Bowel Sounds, Soft, Non-Tender, No Organomegaly, No Distention, No Mass Back Exam: Other (scoliosis noted) Extremities: Normal Inspection, Pedal Edema (1+ non pitting bilaterally) Skin: Warm, Dry, Intact Psy/Mental Status: Alert, Normal Affect, Normal Mood Sepsis Event Note - Evaluation Sepsis Screening Result: No Definite Risk - Focused Exam Vital Signs: Vital Signs Temp Pulse Pulse Resp BP BP Pulse Ox 05/17/20 07:38 97.3 F 102 H 18 143/82 H 98 05/17/20 07:34 143/82 H 05/17/20 07:33 102 H 143/82 H 05/17/20 02:00 99.2 F 95 18 143/61 H 95 - Problem List & Annotations (1) Dehydration SNOMED Code(s): 71430054 Code(s): E86.0 - DEHYDRATION Status: Resolved Current Visit: No (2) Hyponatremia SNOMED Code(s): 88394643 Code(s): E87.1 - HYPO-OSMOLALITY AND HYPONATREMIA Status: Resolved Priority: High Current Visit: No (3) Weakness SNOMED Code(s): 58245293 Code(s): R53.1 - WEAKNESS Status: Acute Priority: High Current Visit: No - Problem List Review Problem List Initiated/Reviewed/Updated: Yes - My Orders Last 24 Hours: My Active Orders 05/17/20 08:15 PT Evaluation and Treatment [CONS] Routine fentaNYL [Duragesic] 12 mcg TRDERM Q72H - Plan Plan:: Patient stable this morning. Continues to have chronic pain, will start Fentanyl patch as patient has done well with this in the past. CT head did not show any concerning lesions. Lesions to scalp are hard and non-mobile. Discussed with Cher (grandson) if they would like further evaluation may want to consider MRI of the brain, which they didn't feel would change treatment at this time. Physical therapy ordered today for strengthening. Labs stable. Will possibly plan for discharge tomorrow am if doing well. Patient in agreement. Sodium is back within normal limits. Dr. Palmer did see patient this morning as well.
[2020-05-17] MEDS: VALACYCLOVIR 500 MG PO SCH (17:45)
[2020-05-17] MEDS: Acetaminophen 325 MG Tab PO PRN (17:45)
[2020-05-17] MEDS: Enoxaparin 40 MG/0.4 ML Syringe SUBCUT SCH (19:40)
[2020-05-18] MEDS: oxyCODONE 5 MG Tab PO PRN (01:48)
[2020-05-18] MEDS: OMEPRAZOLE 20 MG PO SCH (06:53)
[2020-05-18] MEDS: ATORVASTATIN 80 MG PO SCH (07:08)
[2020-05-18] MEDS: ISOSORBIDE MONONITRATE 30 MG PO SCH (07:09)
[2020-05-18] MEDS: OXYBUTYNIN 5 MG PO SCH (07:10)
[2020-05-18] MEDS: POTASSIUM CHLORIDE 20 MEQ PO SCH (07:10)
[2020-05-18] MEDS: Docusate Sodium 100 MG Cap PO SCH (07:10)
[2020-05-18] MEDS: Acetaminophen 325 MG Tab PO PRN ×2 (09:16→17:36)
[2020-05-18 15:12] VITALS: BP 122/67; PULSE 100
[2020-05-18] MEDS: VALACYCLOVIR 500 MG PO SCH (17:45)
--- NOTE | 2020-05-18 22:35 | PCM.DCSUM1 ---
Discharge Summary - Hospital Course HPI Initial Comments: Maday is an 84 yo female with known history of multiple myeloma that does see Dr. Mitchell for treatment. Was seen in the clinic by Dr. Palmer on the 16 of May with weight loss and decreased appetite the last few weeks. She has been on chemo since 2018 and doesn't feel this has lead to anything. Patient does have chronic pain and didn't feel the Tramadol was helping. Admitted her whole body has been achy. Laboratory work did show low sodium and concerns of dehydration. Dr. aPlmer did admit for IV fluids. Patient had CT of the brain yesterday secondary to lumps on her head and chronic headache, which was negative. Diagnosis: Stroke: No - Discharge Data Discharge Date: 05/18/20 Discharge Disposition: Home, W Home Health Agency 06 Condition: Good - Referral to Home Health Date of Face to Face Encounter: 05/18/20 Reason for Homebound Status: Inability to drive. Patient is homebound secondary to decreased activity tolerance needing assistive device for ambulation. Patient is a high fall risk secondary to chronic weakness. Primary Care Physician: Blayne Palmer MD Skilled Need: Nursing to monitor vital signs and medications d/t recent changes. - Discharge Diagnosis/Problem(s) (1) Dehydration SNOMED Code(s): 80670233 ICD Code: E86.0 - DEHYDRATION Status: Resolved (2) Hyponatremia SNOMED Code(s): 93835917 ICD Code: E87.1 - HYPO-OSMOLALITY AND HYPONATREMIA Status: Resolved Priority: High (3) Weakness SNOMED Code(s): 36439264 ICD Code: R53.1 - WEAKNESS Status: Acute Priority: High - Patient Summary/Data Consults: Consultations 05/17/20 08:15 PT Evaluation and Treatment [CONS] Routine - Patient Instructions Diet: Usual Diet as Tolerated Activity: As Tolerated (with walker) - Discharge Plan Prescriptions/Med Rec: Celecoxib [CeleBREX] 100 mg PO DAILY #60 cap fentaNYL [Duragesic] 12 mcg TRDERM Q72H #10 patch Home Medications: Home Meds Furosemide 1 tab PO DAILY 10/10/14 [History] Isosorbide Mononitrate [Imdur] 30 mg PO DAILY 10/10/14 [History] Metoprolol Tartrate [Lopressor] 1 tab PO BID 10/10/14 [History] Omeprazole 20 mg PO DAILY 10/10/14 [History] Oxybutynin 10 mg PO BID 10/10/14 [History] atorvaSTATin [Lipitor] 80 mg PO BEDTIME 10/10/14 [History] traMADol HCl [Tramadol HCl] 1 tab PO BID 10/10/14 [History] Ascorbate Calcium [Vitamin C] 500 mg PO DAILY 08/05/17 [History] Calcium Carbonate/Vitamin D3 [Calcium 600-Vit D3 400 Tablet] 1 each PO DAILY 08/05/17 [History] Cholecalciferol (Vitamin D3) [Vitamin D3] 1,000 units PO DAILY 08/05/17 [History] Glucosam/Chond-MSM 2/C/D3/Hitesh [Fdzxnmfnjv-Wugruadrdfm-IGO] 1 each PO BID 08/05/17 [History] Levothyroxine Sodium [Levoxyl] 50 mcg PO DAILY 08/05/17 [History] Multivitamins [Tab-A-Brandi] 1 each PO DAILY 08/05/17 [History] Docusate Sodium [Colace] 100 mg PO BID cap 08/12/17 [Rx] bisacodyL [Dulcolax] 5 mg PO BEDTIME PRN 10/24/17 [History] valACYclovir HCl [Valtrex] 500 mg PO DAILY 10/24/17 [History] Potassium Chloride 20 meq PO BID 05/16/20 [History] Zinc 20 mg PO DAILY 05/16/20 [History] polyethylene glycoL 3350 [MiraLAX] 17 gm PO DAILY PRN 05/16/20 [History] Celecoxib [CeleBREX] 100 mg PO DAILY #60 cap 05/18/20 [Rx] fentaNYL [Duragesic] 12 mcg TRDERM Q72H #10 patch 05/18/20 [Rx] - Discharge Summary/Plan Comment DC Time >30 min.: Yes Discharge Summary/Plan Comment: Sodium has improved. Patient has been stable and currently appears to be at baseline. patient will be discharged home today. Will start Celebrex for pain and continue Fentanyl patch. Home health referral as patient continues to have generalized weakness, discharge on new medications, unable to drive. - General Info Date of Service: 05/18/20 Functional Status: Reports: Pain Controlled - Review of Systems General: Reports: Weakness, Fatigue. Denies: Fever, Chills, Appetite HEENT: Reports: No Symptoms Pulmonary: Reports: No Symptoms Cardiovascular: Reports: No Symptoms Gastrointestinal: Reports: Constipation. Denies: Nausea, Vomiting Genitourinary: Reports: No Symptoms Musculoskeletal: Reports: Back Pain Skin: Reports: No Symptoms Neurological: Reports: Headache. Denies: Confusion - Patient Data Vitals - Most Recent: Last Vital Signs Temp 98 F 05/18/20 14:00 Pulse 100 05/18/20 14:00 Resp 18 05/18/20 14:00 BP 122/67 05/18/20 14:00 Pulse Ox 97 05/18/20 14:00 Weight - Most Recent: 143 lb Lab Results - Last 24 hrs: Laboratory Results - last 24 hr 05/18/20 05/18/20 Range/Units 09:25 09:25 WBC 9.4 (5.0-10.0) 10^3/uL RBC 3.23 L (4.00-5.50) 10^6/uL Hgb 9.8 L (12.0-16.0) g/dL Hct 30.4 L (37.0-47.0) % MCV 94.1 H (82.0-94.0) fL MCH 30.3 (27.0-32.0) pg MCHC 32.2 L (33.0-38.0) g/dL RDW Coeff of Cameron 16.2 H (11.0-15.0) % Plt Count 152 (150-400) 10^3/uL Neut % (Auto) 84.1 (35-85) % Lymph % (Auto) 7.8 L (10-55) % Bell % (Auto) 7.1 (0-16) % Eos % (Auto) 0.8 (0-5) % Baso % (Auto) 0.2 (0-3) % Neut # (Auto) 7.93 H (1.80-7.00) 10^3/uL Lymph # (Auto) 0.74 L (1.00-4.80) 10^3/uL Bell # (Auto) 0.67 (0.00-0.80) 10^3/uL Eos # (Auto) 0.08 (0.00-0.45) 10^3/uL Baso # (Auto) 0.02 10^3/uL Sodium 134 L (136-145) mEq/L Potassium 4.2 (3.5-5.0) mEq/L Chloride 102 (98-106) mEq/L Carbon Dioxide 24 (21-32) mmol/L BUN 15 (7-18) mg/dL Creatinine 0.9 (0.6-1.0) mg/dL Est Cr Clr Drug Dosing 42.62 mL/min Estimated GFR (MDRD) 60 (>=60) mL/min Glucose 133 H D (75-99) mg/dL Calcium 8.8 (8.4-10.1) mg/dL Total Bilirubin 0.7 (0.0-1.0) mg/dL AST 82 H (15-37) U/L ALT 70 (12-78) U/L Alkaline Phosphatase 228 H (46-116) U/L Total Protein 6.6 (6.4-8.2) g/dL Albumin 2.4 L (3.4-5.0) g/dL Med Orders - Current: Current Medications Discontinued Medications Acetaminophen (Tylenol) 650 mg PO Q4H PRN PRN Reason: Pain (Mild 1-3)/fever Last Admin: 05/18/20 17:36 Dose: 650 mg Documented by: Bisacodyl (Dulcolax) 5 mg PO BEDTIME PRN PRN Reason: Constipation Docusate Sodium (Colace) 100 mg PO BID [facility] Last Admin: 05/18/20 07:10 Dose: 100 mg Documented by: Enoxaparin Sodium (Lovenox) 40 mg SUBCUT Q24H [facility] Last Admin: 05/17/20 19:40 Dose: 40 mg Documented by: Fentanyl (Duragesic) 12 mcg TRDERM Q72H [facility] Last Admin: 05/17/20 08:40 Dose: 12 mcg Documented by: Hydromorphone HCl (Dilaudid) 1 mg IVPUSH Q2H PRN PRN Reason: Pain Last Admin: 05/17/20 01:30 Dose: 1 mg Documented by: Hydromorphone HCl (Dilaudid) 1 mg IVPUSH Q2H PRN PRN Reason: Pain Sodium Chloride (Normal Saline) 1,000 mls @ 75 mls/hr IV ASDIRECTED [facility] Last Admin: 05/16/20 15:12 Dose: 75 mls/hr Documented by: Isosorbide Mononitrate (Imdur) 30 mg PO DAILY [facility] Last Admin: 05/18/20 07:09 Dose: 30 mg Documented by: Levothyroxine Sodium (Synthroid) 50 mcg PO ACBREAKFAST [facility] Last Admin: 05/18/20 06:53 Dose: 50 mcg Documented by: Metoprolol Tartrate (Lopressor) 25 mg PO BIDMEALS [facility] Last Admin: 05/18/20 17:45 Dose: Not Given Documented by: Atorvastatin [ Lipitor] 80 Mg Tab * *Ptom 0 mg PO DAILY [facility] Last Admin: 05/18/20 07:08 Dose: 80 mg Documented by: Potassium Chloride [ Potassium Chloride] 20 Meq Tab Ptom 0 meq PO DAILY [facility] Last Admin: 05/18/20 07:10 Dose: 40 meq Documented by: Omeprazole [ Omeprazole] 20 Mg Cap Ptom 0 mg PO ACBREAKFAST [facility] Last Admin: 05/18/20 06:53 Dose: 20 mg Documented by: Ondansetron HCl (Zofran Odt) 4 mg PO Q4H PRN PRN Reason: nausea, able to take PO Oxybutynin Chloride (Oxybutynin) 10 mg PO BID [facility] Last Admin: 05/18/20 07:10 Dose: 10 mg Documented by: Oxycodone HCl (Oxycodone) 5 mg PO Q4H PRN PRN Reason: Breakthrough Pain Last Admin: 05/18/20 01:48 Dose: 5 mg Documented by: Polyethylene Glycol (Miralax) 17 gm PO DAILY PRN PRN Reason: Constipation Tramadol HCl (Ultram) 50 mg PO BID [facility] Last Admin: 05/18/20 07:11 Dose: 50 mg Documented by: Valacyclovir HCl (Valtrex) 500 mg PO DAILY@1730 [facility] Last Admin: 05/18/20 17:45 Dose: Not Given Documented by: - Exam General: Reports: Alert, Cooperative, No Acute Distress Lungs: Reports: Clear to Auscultation, Normal Respiratory Effort Cardiovascular: Reports: Regular Rate, Regular Rhythm, No Murmurs GI/Abdominal Exam: Normal Bowel Sounds, Soft, No Distention, No Mass Extremities: Pedal Edema (trace bilaterally) Skin: Reports: Warm, Dry, Intact Neurological: Reports: No New Focal Deficit Psy/Mental Status: Reports: Alert, Normal Affect, Normal Mood
== END 2020-05-18 17:55 | disposition home health service (06) ==
LOC: CC.MS 11:26 → UNDOADMOB 11:26 → CC.MS 14:07
PROVIDERS: ADMIT Family Medicine; ATTEND Family Medicine
DX: R53.1 Weakness (principal); C90.00 Multiple myeloma not having achieved remission; I25.10 Atherosclerotic heart disease of native coronary artery without angina pectoris; K21.9 Gastro-esophageal reflux disease without esophagitis; E78.5 Hyperlipidemia, unspecified; E87.1 Hypo-osmolality and hyponatremia; E86.0 Dehydration; Z20.822 Contact with and (suspected) exposure to COVID-19; Z88.2 Allergy status to sulfonamides; Z79.899 Other long term (current) drug therapy; Z98.890 Other specified postprocedural states; Z88.8 Allergy status to other drugs, medicaments and biological substances
CPT/HCPCS: 0240U; 36415; 51701; 70450; 80053; 81001; 83615; 83735; 84550; 85025; 96372; 96374; 97110-GP; 97161-GP; 99217; 99220; 99225; A9270-GY; G0378; J1170; J1650; J7030

== ENCOUNTER 2020-05-19 18:34 | Inpatient (IN) | payer MEDICARE, BC ==
[2020-05-19] MEDS ORDERED: Polyethylene Glycol 3350 Powder 17 GM Packet PO PRN (21:25)
[2020-05-19] MEDS ORDERED: Bisacodyl 5 MG Tab PO PRN (21:25)
[2020-05-19] MEDS ORDERED: fentaNYL 12 MCG/HR Transdermal Patch TRDERM SCH (21:30)
--- NOTE | 2020-05-19 22:06 | EDM.PDOC ---
ED HPI GENERAL MEDICAL PROBLEM - General Chief Complaint: General Stated Complaint: weakness Time Seen by Provider: 05/19/20 19:30 Source of Information: Reports: Patient, RN (Carol Jennings from [facility].) History Limitations: Reports: Other (weakness) - History of Present Illness INITIAL COMMENTS - FREE TEXT/NARRATIVE: Pt was discharged yesterday to home and was to be admitted to home health or hospice today. HH nurse states taht when she arrived there the family- daughter and couldn't decide if she should be HH or hospice. She was having pain that the fentanyl wasn't controlling. Pt states that she hurts and wanted better pain control. She states that the pain is in her back and hips bilaterally. She is having trouble getting around at home due to the weakness and needs more help. She denies any falls while at home. Onset: Gradual Location: Reports: Back, Pelvis Quality: Reports: Throbbing Severity: Moderate Associated Symptoms: Reports: Weakness Bilateral Shoulder Pain Score (Numeric/FACES): 8 - Related Data Allergies Allergy/AdvReac Type Severity Reaction Status Date / Time cortisone Allergy Hives Verified 05/19/20 18:42 Sulfa (Sulfonamide Allergy Hives Verified 05/19/20 18:42 Antibiotics) Home Meds: Home Meds Furosemide 1 tab PO DAILY 10/10/14 [History] Isosorbide Mononitrate [Imdur] 30 mg PO DAILY 10/10/14 [History] Metoprolol Tartrate [Lopressor] 1 tab PO BID 10/10/14 [History] Omeprazole 20 mg PO DAILY 10/10/14 [History] Oxybutynin 10 mg PO BID 10/10/14 [History] atorvaSTATin [Lipitor] 80 mg PO BEDTIME 10/10/14 [History] traMADol HCl [Tramadol HCl] 1 tab PO BID 10/10/14 [History] Ascorbate Calcium [Vitamin C] 500 mg PO DAILY 08/05/17 [History] Calcium Carbonate/Vitamin D3 [Calcium 600-Vit D3 400 Tablet] 1 each PO DAILY 08/05/17 [History] Cholecalciferol (Vitamin D3) [Vitamin D3] 1,000 units PO DAILY 08/05/17 [History] Glucosam/Chond-MSM 2/C/D3/Hitesh [Pfaozwuwsq-Pjqrqydandi-MRC] 1 each PO BID 08/05/17 [History] Levothyroxine Sodium [Levoxyl] 50 mcg PO DAILY 08/05/17 [History] Multivitamins [Tab-A-Brandi] 1 each PO DAILY 08/05/17 [History] Docusate Sodium [Colace] 100 mg PO BID cap 08/12/17 [Rx] bisacodyL [Dulcolax] 5 mg PO BEDTIME PRN 10/24/17 [History] valACYclovir HCl [Valtrex] 500 mg PO DAILY 10/24/17 [History] Potassium Chloride 20 meq PO BID 05/16/20 [History] Zinc 20 mg PO DAILY 05/16/20 [History] polyethylene glycoL 3350 [MiraLAX] 17 gm PO DAILY PRN 05/16/20 [History] Celecoxib [CeleBREX] 100 mg PO DAILY #60 cap 05/18/20 [Rx] fentaNYL [Duragesic] 12 mcg TRDERM Q72H #10 patch 05/18/20 [Rx] Past Medical History HEENT History: Reports: None Respiratory History: Reports: None Gastrointestinal History: Reports: None Genitourinary History: Reports: Urinary Incontinence Musculoskeletal History: Reports: Back Pain, Chronic Neurological History: Reports: None Endocrine/Metabolic History: Reports: Obesity/BMI 30+ Oncologic (Cancer) History: Reports: Other (See Below) Other Oncologic History: MULTIPLE MYELOMA - Infectious Disease History Infectious Disease History: Reports: Other (See Below) Other Infectious Disease History: Covid 19 - Past Surgical History Other Cardiovascular Surgeries/Procedures: STENT PLACEMENT. Vein stripping Musculoskeletal Surgical History: Reports: Knee Replacement Social & Family History - Family History Family Medical History: No Pertinent Family History - Tobacco Use Tobacco Use Status *Q: Never Tobacco User Second Hand Smoke Exposure: No - Caffeine Use Caffeine Use: Reports: None - Recreational Drug Use Recreational Drug Use: No - Living Situation & Occupation Living situation: Reports: , with Spouse Occupation: Retired ED ROS GENERAL - Review of Systems Review Of Systems: See Below Constitutional: Reports: Weakness. Denies: Fever, Chills HEENT: Reports: No Symptoms Respiratory: Reports: No Symptoms Cardiovascular: Reports: No Symptoms GI/Abdominal: Reports: Anorexia : Reports: No Symptoms Musculoskeletal: Reports: Back Pain, Joint Pain Skin: Reports: No Symptoms Neurological: Reports: Difficulty Walking, Weakness ED EXAM, GENERAL - Physical Exam Exam: See Below Exam Limited By: No Limitations General Appearance: Alert, Moderate Distress Ears: Normal External Exam, Normal Canal, Normal TMs Nose: Normal Inspection Throat/Mouth: Normal Inspection, Normal Oropharynx Head: Atraumatic, Normocephalic Neck: Normal Inspection, Supple, Non-Tender, Full Range of Motion Respiratory/Chest: No Respiratory Distress, Lungs Clear Cardiovascular: Regular Rate, Rhythm, Other (trace of edema bilaterally.) GI/Abdominal: Normal Bowel Sounds, Soft, Non-Tender Back Exam: Other (tender to lower back and into her hips with any movement or palpation. ) Extremities: Pedal Edema (trace to 1+ bilaterally.) Neurological: Alert, Oriented Skin Exam: Warm, Dry Course - Vital Signs Last Recorded V/S: Last Vital Signs Temp 97.1 F 05/19/20 18:45 Pulse 104 H 05/19/20 18:45 Resp 18 05/19/20 18:45 BP 153/85 H 05/19/20 18:45 Pulse Ox 96 05/19/20 18:45 - Orders/Labs/Meds Orders: Medication Orders Atorvastatin Calcium (Lipitor) 80 mg PO BEDTIME [facility] Bisacodyl (Dulcolax) 5 mg PO BEDTIME PRN PRN Reason: Constipation Celecoxib (Celebrex) 100 mg PO DAILY [facility] Docusate Sodium (Colace) 100 mg PO BID [facility] Enoxaparin Sodium (Lovenox) 40 mg SUBCUT BEDTIME [facility] Fentanyl (Duragesic) 12 mcg TRDERM Q72H [facility] Fentanyl (Fentanyl) 12.5 mcg IVPUSH Q6H PRN PRN Reason: Breakthrough Pain Furosemide (Lasix) 40 mg PO DAILY [facility] Sodium Chloride (Normal Saline) 1,000 mls @ 75 mls/hr IV ASDIRECTED [facility] Isosorbide Mononitrate (Imdur) 30 mg PO DAILY [facility] Levothyroxine Sodium (Synthroid) 50 mcg PO DAILY [facility] Metoprolol Tartrate (Lopressor) 25 mg PO BID [facility] Oxybutynin Chloride (Oxybutynin) 10 mg PO BID [facility] Pantoprazole Sodium (Protonix Iv) 40 mg IVPUSH Q12H [facility] Polyethylene Glycol (Miralax) 17 gm PO DAILY PRN PRN Reason: Constipation Potassium Chloride (Klor-Con 10) 20 meq PO BID [facility] Valacyclovir HCl (Valtrex) 500 mg PO DAILY [facility] Labs: Laboratory Tests 05/19/20 05/19/20 05/19/20 Range/Units 19:50 19:50 19:50 WBC 8.7 (5.0-10.0) 10^3/uL RBC 3.02 L (4.00-5.50) 10^6/uL Hgb 9.3 L (12.0-16.0) g/dL Hct 28.3 L (37.0-47.0) % MCV 93.7 (82.0-94.0) fL MCH 30.8 (27.0-32.0) pg MCHC 32.9 L (33.0-38.0) g/dL RDW Coeff of Cameron 16.1 H (11.0-15.0) % Plt Count 135 L (150-400) 10^3/uL Neut % (Auto) 80.2 (35-85) % Lymph % (Auto) 9.3 L (10-55) % [place] % (Auto) 8.0 (0-16) % Eos % (Auto) 2.3 (0-5) % Baso % (Auto) 0.2 (0-3) % Neut # (Auto) 7.00 (1.80-7.00) 10^3/uL Lymph # (Auto) 0.81 L (1.00-4.80) 10^3/uL [place] # (Auto) 0.70 (0.00-0.80) 10^3/uL Eos # (Auto) 0.20 (0.00-0.45) 10^3/uL Baso # (Auto) 0.02 10^3/uL Sodium 133 L (136-145) mEq/L Potassium 4.0 (3.5-5.0) mEq/L Chloride 100 (98-106) mEq/L Carbon Dioxide 23 (21-32) mmol/L BUN 17 (7-18) mg/dL Creatinine 1.0 (0.6-1.0) mg/dL Est Cr Clr Drug Dosing 38.36 mL/min Estimated GFR (MDRD) 53 L (>=60) mL/min Glucose 109 H (75-99) mg/dL Lactic Acid 1.4 (0.4-2.0) mmol/L Calcium 8.7 (8.4-10.1) mg/dL Total Bilirubin 0.7 (0.0-1.0) mg/dL AST 106 H (15-37) U/L ALT 92 H (12-78) U/L Alkaline Phosphatase 247 H (46-116) U/L C-Reactive Protein 8.9 H (0.2-0.8) mg/dL Total Protein 6.5 (6.4-8.2) g/dL Albumin 2.4 L (3.4-5.0) g/dL Meds: Medications Generic Name Dose Route Start Last Admin Trade Name Freq PRN Reason Stop Dose Admin Atorvastatin Calcium 80 mg 05/20/20 20:00 Lipitor PO BEDTIME [facility] Bisacodyl 5 mg 05/19/20 21:25 Dulcolax PO BEDTIME PRN Constipation Celecoxib 100 mg 05/20/20 08:00 Celebrex PO DAILY [facility] Docusate Sodium 100 mg 05/20/20 08:00 Colace PO BID [facility] Enoxaparin Sodium 40 mg 05/19/20 21:30 Lovenox SUBCUT BEDTIME [facility] Fentanyl 12 mcg 05/20/20 09:00 Duragesic TRDERM Q72H [facility] Fentanyl 12.5 mcg 05/19/20 21:24 Fentanyl IVPUSH Q6H PRN Breakthrough Pain Furosemide 40 mg 05/20/20 08:00 Lasix PO DAILY [facility] Sodium Chloride 1,000 mls @ 75 mls/hr 05/19/20 21:30 Normal Saline IV ASDIRECTED [facility] Isosorbide Mononitrate 30 mg 05/20/20 08:00 Imdur PO DAILY [facility] Levothyroxine Sodium 50 mcg 05/20/20 08:00 Synthroid PO DAILY [facility] Metoprolol Tartrate 25 mg 05/20/20 08:00 Lopressor PO BID [facility] Oxybutynin Chloride 10 mg 05/20/20 08:00 Oxybutynin PO BID [facility] Pantoprazole Sodium 40 mg 05/19/20 21:30 Protonix Iv IVPUSH Q12H [facility] Polyethylene Glycol 17 gm 05/19/20 21:25 Miralax PO DAILY PRN Constipation Potassium Chloride 20 meq 05/20/20 08:00 Klor-Con 10 PO BID [facility] Valacyclovir HCl 500 mg 05/20/20 08:00 Valtrex PO DAILY [facility] Discontinued Medications Generic Name Dose Route Start Last Admin Trade Name Freq PRN Reason Stop Dose Admin Fentanyl 12 mcg 05/19/20 21:30 Duragesic TRDERM Q72H [facility] - Re-Assessments/Exams Free Text/Narrative Re-Assessment/Exam: 05/19/20 20:00 Discussed case in depth with Dr. Palmer and he feels that she should be admitted to acute care with pain control of IV fentanyl for break through pain, IV NS to correct the hyponatremia, IV protonix, PT to strengthen. Pt is in agreement of this plan and will be admitted. Departure - Departure Time of Disposition: 22:12 Disposition: Admitted As Inpatient 67 Condition: Poor Clinical Impression: Weakness, Hyponatremia, Inadequate pain control, Failure to thrive in adult, Palliative care status Multiple myeloma Qualifiers: Multiple myeloma remission status: not in remission Qualified Code(s): C90.00 - Multiple myeloma not having achieved remission Back pain Qualifiers: Back pain location: low back pain Chronicity: acute Back pain laterality: midline Sciatica presence: without sciatica Qualified Code(s): M54.5 - Low back pain - Discharge Information Sepsis Event Note (ED) - Evaluation Sepsis Screening Result: No Definite Risk - Focused Exam Vital Signs: Vital Signs Temp Pulse Resp BP Pulse Ox 05/19/20 18:45 97.1 F 104 H 18 153/85 H 96 - Problem List & Annotations (1) Hyponatremia SNOMED Code(s): 53055028 Code(s): E87.1 - HYPO-OSMOLALITY AND HYPONATREMIA Status: Acute Priority: High Current Visit: Yes (2) Multiple myeloma SNOMED Code(s): 868194306 Code(s): C90.00 - MULTIPLE MYELOMA NOT HAVING ACHIEVED REMISSION Status: Chronic Priority: High Current Visit: Yes Qualifiers: Multiple myeloma remission status: not in remission Qualified Code(s): C90.00 - Multiple myeloma not having achieved remission (3) Weakness SNOMED Code(s): 49816136 Code(s): R53.1 - WEAKNESS Status: Acute Priority: High Current Visit: Yes (4) Back pain SNOMED Code(s): 716211361 Code(s): M54.9 - DORSALGIA, UNSPECIFIED Status: Acute Priority: High Current Visit: Yes Qualifiers: Back pain location: low back pain Chronicity: acute Back pain laterality: midline Sciatica presence: without sciatica Qualified Code(s): M54.5 - Low back pain (5) Failure to thrive in adult SNOMED Code(s): 297477048 Code(s): R62.7 - ADULT FAILURE TO THRIVE Status: Acute Priority: High Current Visit: Yes (6) Hyponatremia SNOMED Code(s): 81055041 Code(s): E87.1 - HYPO-OSMOLALITY AND HYPONATREMIA Status: Acute Priority: High Current Visit: Yes (7) Inadequate pain control SNOMED Code(s): 029642660 Code(s): R52 - PAIN, UNSPECIFIED Status: Acute Priority: High Current Visit: Yes (8) Palliative care status SNOMED Code(s): 157328481 Code(s): Z51.5 - ENCOUNTER FOR PALLIATIVE CARE Status: Chronic Priority: Low Current Visit: Yes - Problem List Review Problem List Initiated/Reviewed/Updated: Yes - Assessment/Plan Admission H&P: Please use this note as an admission H&P Plan: Pt will be admitted to acute care with IV NS to correct her hyponatremia she will be started on IV fentanyl for break through pain in addition to her tr ansdermal patch. PT will be consulted for strengthening. IV protonix will be started for GI protection social media designer to consult to determine if pt is hospice pt or is going to continue on treatment and group home placement versus possible discharge home with family caring for her.
[2020-05-19] MEDS: Sodium Chloride 0.9% 1,000 ML IV SCH (22:11)
[2020-05-19] MEDS: Enoxaparin 40 MG/0.4 ML Syringe SUBCUT SCH (22:14)
[2020-05-19] MEDS: Pantoprazole 40 MG Vial IVPUSH SCH (22:15)
[2020-05-19] MEDS: fentaNYL 50 MCG/ML SDV IVPUSH PRN (22:21)
[2020-05-20] MEDS: traMADol 50 MG Tab PO PRN ×2 (02:09→13:18)
[2020-05-20 07:32] LABS: CHLORIDE,CL 103 mEq/L (98-106); SODIUM,NA 134 mEq/L (136-145)
[2020-05-20] MEDS: Pantoprazole 40 MG Vial IVPUSH SCH ×2 (08:30→21:41)
[2020-05-20] MEDS: Celecoxib 100 MG Cap PO SCH (08:31)
[2020-05-20] MEDS: Potassium Chloride 10 MEQ Tab.ER PO SCH ×2 (08:31→19:23)
[2020-05-20] MEDS: Levothyroxine 50 MCG Tab PO SCH (08:32)
[2020-05-20] MEDS: Metoprolol Tartrate 25 MG Tab PO SCH ×2 (08:32→19:22)
[2020-05-20] MEDS: Furosemide 40 MG Tab PO SCH (08:32)
[2020-05-20] MEDS: Isosorbide Mononitrate 30 MG Tab.ER PO SCH (08:32)
[2020-05-20] MEDS: Oxybutynin 5 MG Tab PO SCH ×2 (08:32→19:22)
[2020-05-20] MEDS: valACYclovir 500 MG Tab PO SCH (08:32)
[2020-05-20] MEDS: Docusate Sodium 100 MG Cap PO SCH ×2 (08:32→19:23)
[2020-05-20] MEDS: fentaNYL 50 MCG/ML SDV IVPUSH PRN ×2 (08:35→15:37)
[2020-05-20] MEDS ORDERED: fentaNYL 12 MCG/HR Transdermal Patch TRDERM SCH (09:00)
[2020-05-20] MEDS: Sodium Chloride 0.9% 1,000 ML IV SCH ×2 (11:15→19:22)
--- NOTE | 2020-05-20 13:14 | PCM.PN ---
- General Info Date of Service: 05/20/20 Subjective Update: Maday is an 84 yo female who was admitted from ED yesterday with concerns of weakness, hyponatremia and chronic pain. Patient was discharged from the hospital yesterday to have home health or hospice care. Patient has known history of multiple myeloma. Home health nurse did evaluate patient and when she arrived yesterday evening the family- daughter and couldn't decide if she should be HH or hospice. She was having pain that the fentanyl wasn't cont rolling. PPt states that she hurts and wanted better pain control. She states that the pain is in her back and hips bilaterally. She is having trouble getting around at home due to the weakness and needs more help. She denies any falls while at home. 05/20/2020 Maday is alert and orientated this morning. States she continue to have discomfort and asks if she can get any more medication to help with this. Otherwise continues to feel very weak and states she is ready to . States she doesn't want any more treatments at this time. States she is tired. - Review of Systems General: Reports: Weakness, Fatigue. Denies: Fever, Appetite HEENT: Reports: No Symptoms Pulmonary: Reports: No Symptoms Cardiovascular: Reports: No Symptoms Gastrointestinal: Reports: No Symptoms Musculoskeletal: Reports: Back Pain, Other Skin: Reports: No Symptoms Neurological: Reports: No Symptoms - Patient Data Vitals - Most Recent: Last Vital Signs Temp 98.6 F 05/20/20 12:17 Pulse 110 H 05/20/20 12:17 Resp 18 05/20/20 12:17 BP 117/69 05/20/20 12:17 Pulse Ox 96 05/20/20 12:17 Weight - Most Recent: 145 lb I&O - Last 24 Hours: Intake & Output 05/19/20 05/20/20 05/20/20 22:59 06:59 14:59 Intake Total 240 980 Balance 240 980 Lab Results Last 24 Hours: Laboratory Results - last 24 hr 05/19/20 05/19/20 05/19/20 Range/Units 19:50 19:50 19:50 WBC 8.7 (5.0-10.0) 10^3/uL RBC 3.02 L (4.00-5.50) 10^6/uL Hgb 9.3 L (12.0-16.0) g/dL Hct 28.3 L (37.0-47.0) % MCV 93.7 (82.0-94.0) fL MCH 30.8 (27.0-32.0) pg MCHC 32.9 L (33.0-38.0) g/dL RDW Coeff of [place] 16.1 H (11.0-15.0) % Plt Count 135 L (150-400) 10^3/uL Neut % (Auto) 80.2 (35-85) % Lymph % (Auto) 9.3 L (10-55) % [place] % (Auto) 8.0 (0-16) % Eos % (Auto) 2.3 (0-5) % Baso % (Auto) 0.2 (0-3) % Neut # (Auto) 7.00 (1.80-7.00) 10^3/uL Lymph # (Auto) 0.81 L (1.00-4.80) 10^3/uL [place] # (Auto) 0.70 (0.00-0.80) 10^3/uL Eos # (Auto) 0.20 (0.00-0.45) 10^3/uL Baso # (Auto) 0.02 10^3/uL Sodium 133 L (136-145) mEq/L Potassium 4.0 (3.5-5.0) mEq/L Chloride 100 (98-106) mEq/L Carbon Dioxide 23 (21-32) mmol/L BUN 17 (7-18) mg/dL Creatinine 1.0 (0.6-1.0) mg/dL Est Cr Clr Drug Dosing 38.36 mL/min Estimated GFR (MDRD) 53 L (>=60) mL/min Glucose 109 H (75-99) mg/dL Lactic Acid 1.4 (0.4-2.0) mmol/L Calcium 8.7 (8.4-10.1) mg/dL Total Bilirubin 0.7 (0.0-1.0) mg/dL AST 106 H (15-37) U/L ALT 92 H (12-78) U/L Alkaline Phosphatase 247 H (46-116) U/L C-Reactive Protein 8.9 H (0.2-0.8) mg/dL Total Protein 6.5 (6.4-8.2) g/dL Albumin 2.4 L (3.4-5.0) g/dL 05/20/20 Range/Units 05:11 WBC (5.0-10.0) 10^3/uL RBC (4.00-5.50) 10^6/uL Hgb (12.0-16.0) g/dL Hct (37.0-47.0) % MCV (82.0-94.0) fL MCH (27.0-32.0) pg MCHC (33.0-38.0) g/dL RDW Coeff of [place] (11.0-15.0) % Plt Count (150-400) 10^3/uL Neut % (Auto) (35-85) % Lymph % (Auto) (10-55) % [place] % (Auto) (0-16) % Eos % (Auto) (0-5) % Baso % (Auto) (0-3) % Neut # (Auto) (1.80-7.00) 10^3/uL Lymph # (Auto) (1.00-4.80) 10^3/uL [place] # (Auto) (0.00-0.80) 10^3/uL Eos # (Auto) (0.00-0.45) 10^3/uL Baso # (Auto) 10^3/uL Sodium 134 L (136-145) mEq/L Potassium 3.5 (3.5-5.0) mEq/L Chloride 103 (98-106) mEq/L Carbon Dioxide 22 (21-32) mmol/L BUN 17 (7-18) mg/dL Creatinine 0.8 (0.6-1.0) mg/dL Est Cr Clr Drug Dosing 47.95 mL/min Estimated GFR (MDRD) > 60 (>=60) mL/min Glucose 109 H (75-99) mg/dL Lactic Acid (0.4-2.0) mmol/L Calcium 8.5 (8.4-10.1) mg/dL Total Bilirubin (0.0-1.0) mg/dL AST (15-37) U/L ALT (12-78) U/L Alkaline Phosphatase (46-116) U/L C-Reactive Protein (0.2-0.8) mg/dL Total Protein (6.4-8.2) g/dL Albumin (3.4-5.0) g/dL Med Orders - Current: Current Medications Atorvastatin Calcium (Lipitor) 80 mg PO BEDTIME [facility] Bisacodyl (Dulcolax) 5 mg PO BEDTIME PRN PRN Reason: Constipation Celecoxib (Celebrex) 100 mg PO DAILY [facility] Last Admin: 05/20/20 08:31 Dose: 100 mg Documented by: Docusate Sodium (Colace) 100 mg PO BID [facility] Last Admin: 05/20/20 08:32 Dose: 100 mg Documented by: Enoxaparin Sodium (Lovenox) 40 mg SUBCUT BEDTIME [facility] Last Admin: 05/19/20 22:14 Dose: 40 mg Documented by: Fentanyl (Duragesic) 12 mcg TRDERM Q72H [facility] Last Admin: 05/20/20 08:41 Dose: 12 mcg Documented by: Fentanyl (Fentanyl) 12.5 - 25 mcg IVPUSH Q6H PRN PRN Reason: Breakthrough Pain Furosemide (Lasix) 40 mg PO DAILY [facility] Last Admin: 05/20/20 08:32 Dose: 40 mg Documented by: Sodium Chloride (Normal Saline) 1,000 mls @ 75 mls/hr IV ASDIRECTED [facility] Last Admin: 05/20/20 11:15 Dose: 75 mls/hr Documented by: Isosorbide Mononitrate (Imdur) 30 mg PO DAILY [facility] Last Admin: 05/20/20 08:32 Dose: 30 mg Documented by: Levothyroxine Sodium (Synthroid) 50 mcg PO DAILY [facility] Last Admin: 05/20/20 08:32 Dose: 50 mcg Documented by: Metoprolol Tartrate (Lopressor) 25 mg PO BID [facility] Last Admin: 05/20/20 08:32 Dose: 25 mg Documented by: Oxybutynin Chloride (Oxybutynin) 10 mg PO BID [facility] Last Admin: 05/20/20 08:32 Dose: 10 mg Documented by: Pantoprazole Sodium (Protonix Iv) 40 mg IVPUSH Q12H [facility] Last Admin: 05/20/20 08:30 Dose: 40 mg Documented by: Polyethylene Glycol (Miralax) 17 gm PO DAILY PRN PRN Reason: Constipation Potassium Chloride (Klor-Con 10) 20 meq PO BID [facility] Last Admin: 05/20/20 08:31 Dose: 20 meq Documented by: Tramadol HCl (Ultram) 50 mg PO Q6H PRN PRN Reason: Pain Last Admin: 05/20/20 02:09 Dose: 50 mg Documented by: Valacyclovir HCl (Valtrex) 500 mg PO DAILY [facility] Last Admin: 05/20/20 08:32 Dose: 500 mg Documented by: Discontinued Medications Fentanyl (Fentanyl) 12.5 mcg IVPUSH Q6H PRN PRN Reason: Breakthrough Pain Last Admin: 05/20/20 08:35 Dose: 12.5 mcg Documented by: Fentanyl (Duragesic) 12 mcg TRDERM Q72H [facility] Last Admin: 05/19/20 22:24 Dose: Not Given Documented by: - Exam General: Alert, Oriented, Cooperative Lungs: Clear to Auscultation, Normal Respiratory Effort Cardiovascular: Regular Rate, Regular Rhythm GI/Abdominal Exam: Normal Bowel Sounds, Soft, No Distention Extremities: Pedal Edema (trace bilateral) Skin: Warm, Dry, Intact Psy/Mental Status: Alert, Normal Affect, Normal Mood Sepsis Event Note - Evaluation Sepsis Screening Result: No Definite Risk - Focused Exam Vital Signs: Vital Signs Temp Pulse Pulse Resp BP BP Pulse Ox 05/20/20 12:17 98.6 F 110 H 18 117/69 96 05/20/20 08:32 91 112/55 L 05/20/20 08:00 97.4 F 91 18 112/55 L 97 - Problem List & Annotations (1) Back pain SNOMED Code(s): 813129597 Code(s): M54.9 - DORSALGIA, UNSPECIFIED Status: Acute Priority: High Current Visit: Yes Qualifiers: Back pain location: low back pain Chronicity: acute Back pain laterality: midline Sciatica presence: without sciatica Qualified Code(s): M54.5 - Low back pain (2) Hyponatremia SNOMED Code(s): 94869207 Code(s): E87.1 - HYPO-OSMOLALITY AND HYPONATREMIA Status: Chronic Priority: High Current Visit: Yes (3) Inadequate pain control SNOMED Code(s): 663376589 Code(s): R52 - PAIN, UNSPECIFIED Status: Acute Priority: High Current Visit: Yes (4) Weakness SNOMED Code(s): 06847642 Code(s): R53.1 - WEAKNESS Status: Acute Priority: High Current Visit: Yes (5) Multiple myeloma SNOMED Code(s): 499431691 Code(s): C90.00 - MULTIPLE MYELOMA NOT HAVING ACHIEVED REMISSION Status: Chronic Priority: High Current Visit: Yes Qualifiers: Multiple myeloma remission status: not in remission Qualified Code(s): C90.00 - Multiple myeloma not having achieved remission (6) Palliative care status SNOMED Code(s): 151564926 Code(s): Z51.5 - ENCOUNTER FOR PALLIATIVE CARE Status: Chronic Priority: Low Current Visit: Yes - Problem List Review Problem List Initiated/Reviewed/Updated: Yes - My Orders Last 24 Hours: My Active Orders 05/20/20 12:53 fentaNYL 12.5 - 25 mcg IVPUSH Q6H PRN - Plan Plan:: Will continue to titrate pain medication. Discussed with Maday it may make her sleepy, which she states would be okay. Sodium stable today. Family will be present this weekend and will decide on Hospice care.
[2020-05-20] MEDS: atorvaSTATin 20 MG Tab PO SCH (19:22)
[2020-05-20] MEDS: Enoxaparin 40 MG/0.4 ML Syringe SUBCUT SCH (19:22)
[2020-05-21] MEDS: fentaNYL 50 MCG/ML SDV IVPUSH PRN ×3 (04:02→18:09)
[2020-05-21] MEDS: atorvaSTATin 20 MG Tab PO SCH ×2 (04:03→19:17)
[2020-05-21] MEDS: Potassium Chloride 10 MEQ Tab.ER PO SCH ×3 (04:04→19:17)
[2020-05-21] MEDS: Docusate Sodium 100 MG Cap PO SCH ×3 (04:04→19:18)
[2020-05-21] MEDS: Metoprolol Tartrate 25 MG Tab PO SCH ×3 (04:05→19:18)
[2020-05-21] MEDS: Oxybutynin 5 MG Tab PO SCH ×3 (04:05→19:18)
[2020-05-21] MEDS: valACYclovir 500 MG Tab PO SCH (07:45)
[2020-05-21] MEDS: Levothyroxine 50 MCG Tab PO SCH (07:45)
[2020-05-21] MEDS: Isosorbide Mononitrate 30 MG Tab.ER PO SCH (07:46)
[2020-05-21] MEDS: Celecoxib 100 MG Cap PO SCH (07:46)
[2020-05-21] MEDS: Furosemide 40 MG Tab PO SCH (07:46)
[2020-05-21] MEDS: traMADol 50 MG Tab PO PRN ×2 (07:50→16:36)
[2020-05-21] MEDS: Pantoprazole 40 MG Vial IVPUSH SCH ×2 (08:36→20:30)
--- NOTE | 2020-05-21 11:19 | PCM.PN ---
- General Info Date of Service: 05/21/20 Admission Dx/Problem (Free Text): Multiple Myeloma Pain control Weakness Subjective Update: Maday is an 84 yo female who was admitted from ED yesterday with concerns of weakness, hyponatremia and chronic pain. Patient was discharged from the hospital yesterday to have home health or hospice care. Patient has known history of multiple myeloma. Home health nurse did evaluate patient and when she arrived yesterday evening the family- daughter and couldn't decide if she should be HH or hospice. She was having pain that the fentanyl wasn't controlling. PPt states that she hurts and wanted better pain control. She states that the pain is in her back and hips bilaterally. She is having trouble getting around at home due to the weakness and needs more help. She denies any falls while at home. 05/20/2020 Maday is alert and orientated this morning. States she continue to have discomfort and asks if she can get any more medication to help with this. Otherwise continues to feel very weak and states she is ready to . States she doesn't want any more treatments at this time. States she is tired. 05-21-2020 Patient is resting comfortably at this time, does state that has pain all over all the time. Does not feel medications help long enough. Still weak. Expresses desire to "just be done and ". Does moan continuously in room despite pain meds given. Appetite has been good, patient complains that "they push and push and make me eat", nurse reports she has good appetite. No chest pain or shortness of breath. Denies any nausea. Functional Status: Reports: Tolerating Diet, Urinating. Denies: Pain Controlled, Ambulating - Review of Systems General: Reports: Weakness, Fatigue, Malaise. Denies: Fever HEENT: Denies: Ear Pain, Sore Throat Pulmonary: Denies: Shortness of Breath, Cough Cardiovascular: Denies: Chest Pain, Edema, Lightheadedness Gastrointestinal: Denies: Abdominal Pain, Decreased Appetite, Nausea, Vomiting Genitourinary: Reports: Incontinence Musculoskeletal: Reports: Other (states has pain all over in her bones) Skin: Reports: No Symptoms Neurological: Reports: Weakness - Patient Data Vitals - Most Recent: Last Vital Signs Temp 98.4 F 05/21/20 07:48 Pulse 87 05/21/20 07:48 Resp 20 05/21/20 07:48 BP 146/78 H 05/21/20 07:48 Pulse Ox 99 05/21/20 07:48 Weight - Most Recent: 148 lb 3.2 oz I&O - Last 24 Hours: Intake & Output 05/20/20 05/21/20 05/21/20 22:59 06:59 14:59 Intake Total 1109 100 Balance 1109 100 Med Orders - Current: Current Medications Atorvastatin Calcium (Lipitor) 80 mg PO BEDTIME [facility] Last Admin: 05/21/20 04:03 Dose: Not Given Documented by: Bisacodyl (Dulcolax) 5 mg PO BEDTIME PRN PRN Reason: Constipation Celecoxib (Celebrex) 100 mg PO DAILY [facility] Last Admin: 05/21/20 07:46 Dose: 100 mg Documented by: Docusate Sodium (Colace) 100 mg PO BID [facility] Last Admin: 05/21/20 07:46 Dose: 100 mg Documented by: Enoxaparin Sodium (Lovenox) 40 mg SUBCUT BEDTIME [facility] Last Admin: 05/20/20 19:22 Dose: 40 mg Documented by: Fentanyl (Duragesic) 12 mcg TRDERM Q72H [facility] Last Admin: 05/20/20 08:41 Dose: 12 mcg Documented by: Fentanyl (Fentanyl) 12.5 - 25 mcg IVPUSH Q6H PRN PRN Reason: Breakthrough Pain Last Admin: 05/21/20 04:02 Dose: 25 mcg Documented by: Furosemide (Lasix) 40 mg PO DAILY [facility] Last Admin: 05/21/20 07:46 Dose: 40 mg Documented by: Sodium Chloride (Normal Saline) 1,000 mls @ 75 mls/hr IV ASDIRECTED [facility] Last Admin: 05/20/20 19:22 Dose: 75 mls/hr Documented by: Isosorbide Mononitrate (Imdur) 30 mg PO DAILY [facility] Last Admin: 05/21/20 07:46 Dose: 30 mg Documented by: Levothyroxine Sodium (Synthroid) 50 mcg PO DAILY [facility] Last Admin: 05/21/20 07:45 Dose: 50 mcg Documented by: Metoprolol Tartrate (Lopressor) 25 mg PO BID [facility] Last Admin: 05/21/20 07:46 Dose: 25 mg Documented by: Miscellaneous Information (Remove Patch) 1 ea TRDERM Q72H [facility] Oxybutynin Chloride (Oxybutynin) 10 mg PO BID [facility] Last Admin: 05/21/20 07:46 Dose: 10 mg Documented by: Pantoprazole Sodium (Protonix Iv) 40 mg IVPUSH Q12H [facility] Last Admin: 05/21/20 08:36 Dose: 40 mg Documented by: Polyethylene Glycol (Miralax) 17 gm PO DAILY PRN PRN Reason: Constipation Potassium Chloride (Klor-Con 10) 20 meq PO BID [facility] Last Admin: 05/21/20 07:46 Dose: 20 meq Documented by: Tramadol HCl (Ultram) 50 mg PO Q6H PRN PRN Reason: Pain Last Admin: 05/21/20 07:50 Dose: 50 mg Documented by: Valacyclovir HCl (Valtrex) 500 mg PO DAILY [facility] Last Admin: 05/21/20 07:45 Dose: 500 mg Documented by: Discontinued Medications Fentanyl (Fentanyl) 12.5 mcg IVPUSH Q6H PRN PRN Reason: Breakthrough Pain Last Admin: 05/20/20 08:35 Dose: 12.5 mcg Documented by: Fentanyl (Duragesic) 12 mcg TRDERM Q72H [facility] Last Admin: 05/19/20 22:24 Dose: Not Given Documented by: - Exam General: Alert, Oriented, Cooperative HEENT: Mucous Membr. Moist/[place] Neck: Supple Lungs: Clear to Auscultation, Normal Respiratory Effort Cardiovascular: Regular Rate, Regular Rhythm GI/Abdominal Exam: Normal Bowel Sounds, Soft, Non-Tender Extremities: Normal Inspection, No Pedal Edema Skin: Warm, Dry Neurological: No New Focal Deficit Sepsis Event Note - Evaluation Sepsis Screening Result: No Definite Risk - Focused Exam Vital Signs: Vital Signs Temp Pulse Pulse Resp BP BP Pulse Ox 05/21/20 07:48 98.4 F 87 20 146/78 H 99 05/21/20 07:46 87 146/78 H 05/21/20 00:00 99 F 84 18 126/52 L 96 - Problem List & Annotations (1) Failure to thrive in adult SNOMED Code(s): 217660694 Code(s): R62.7 - ADULT FAILURE TO THRIVE Status: Acute Priority: High Current Visit: Yes (2) Weakness SNOMED Code(s): 35375874 Code(s): R53.1 - WEAKNESS Status: Acute Priority: High Current Visit: Yes (3) Multiple myeloma SNOMED Code(s): 078491266 Code(s): C90.00 - MULTIPLE MYELOMA NOT HAVING ACHIEVED REMISSION Status: Chronic Priority: High Current Visit: Yes Qualifiers: Multiple myeloma remission status: not in remission Qualified Code(s): C90.00 - Multiple myeloma not having achieved remission (4) Palliative care status SNOMED Code(s): 674627209 Code(s): Z51.5 - ENCOUNTER FOR PALLIATIVE CARE Status: Chronic Priority: Medium Current Visit: Yes - Problem List Review Problem List Initiated/Reviewed/Updated: Yes - Assessment Assessment:: Failure to thrive Weakness Multiple Myeloma Palliative Care patient - Plan Plan:: Will continue to titrate pain medication. Discussed with Maday it may make her sleepy, which she states would be okay. Sodium stable today. Family will be present this weekend and will decide on Hospice care. 05-21-2020 Will continue with current IV pain medication as staff states she does rest well, sleeps and is eating. Labs stable. Will continue with present care, await family decision on home with hospice on Saturday.
[2020-05-21] MEDS: Sodium Chloride 0.9% 1,000 ML IV SCH ×2 (12:30→19:17)
[2020-05-21] MEDS: Enoxaparin 40 MG/0.4 ML Syringe SUBCUT SCH (19:17)
[2020-05-22] MEDS: fentaNYL 50 MCG/ML SDV IVPUSH PRN ×6 (00:24→23:16)
[2020-05-22] MEDS: Levothyroxine 50 MCG Tab PO SCH (07:32)
[2020-05-22] MEDS: Docusate Sodium 100 MG Cap PO SCH ×2 (07:32→22:48)
[2020-05-22] MEDS: Furosemide 40 MG Tab PO SCH (07:33)
[2020-05-22] MEDS: Metoprolol Tartrate 25 MG Tab PO SCH ×2 (07:33→22:48)
[2020-05-22] MEDS: Oxybutynin 5 MG Tab PO SCH ×2 (07:34→22:49)
[2020-05-22] MEDS: valACYclovir 500 MG Tab PO SCH (07:34)
[2020-05-22] MEDS: Isosorbide Mononitrate 30 MG Tab.ER PO SCH (07:35)
[2020-05-22] MEDS: Potassium Chloride 10 MEQ Tab.ER PO SCH ×2 (07:35→22:48)
[2020-05-22] MEDS: Celecoxib 100 MG Cap PO SCH (07:35)
[2020-05-22] MEDS: Pantoprazole 40 MG Vial IVPUSH SCH ×2 (09:05→23:16)
--- NOTE | 2020-05-22 09:53 | PCM.PN ---
- General Info Date of Service: 05/22/20 Admission Dx/Problem (Free Text): Multiple Myeloma Pain control Weakness Subjective Update: Maday is an 84 yo female who was admitted from ED yesterday with concerns of weakness, hyponatremia and chronic pain. Patient was discharged from the hospital yesterday to have home health or hospice care. Patient has known history of multiple myeloma. Home health nurse did evaluate patient and when she arrived yesterday evening the family- daughter and couldn't decide if she should be HH or hospice. She was having pain that the fentanyl wasn't controlling. PPt states that she hurts and wanted better pain control. She states that the pain is in her back and hips bilaterally. She is having trouble getting around at home due to the weakness and needs more help. She denies any falls while at home. 05/20/2020 Maday is alert and orientated this morning. States she continue to have discomfort and asks if she can get any more medication to help with this. Otherwise continues to feel very weak and states she is ready to . States she doesn't want any more treatments at this time. States she is tired. 05-21-2020 Patient is resting comfortably at this time, does state that has pain all over all the time. Does not feel medications help long enough. Still weak. Expresses desire to "just be done and ". Does moan continuously in room despite pain meds given. Appetite has been good, patient complains that "they push and push and make me eat", nurse reports she has good appetite. No chest pain or shortness of breath. Denies any nausea. 05-22-2020 Patient is lethargic this am but does arouse to verbal command. States has pain all over from her cancer. "just wants a pill to help end it". Did have 50% of breakfast this am, does feed self. Denies shortness of breath or chest pain. Still requiring PRN pain meds. Nurse did rub biofreeze on joints today. Very weak. Functional Status: Reports: Tolerating Diet. Denies: Pain Controlled, Ambulating - Review of Systems General: Reports: Weakness, Fatigue, Malaise HEENT: Reports: No Symptoms Pulmonary: Denies: Shortness of Breath, Cough Cardiovascular: Denies: Chest Pain, Edema, Lightheadedness Gastrointestinal: Denies: Abdominal Pain, Nausea, Vomiting Genitourinary: Reports: Incontinence Musculoskeletal: Reports: Joint Pain Skin: Reports: No Symptoms Neurological: Reports: Weakness - Patient Data Vitals - Most Recent: Last Vital Signs Temp 97.8 F 05/22/20 07:44 Pulse 84 05/22/20 07:44 Resp 16 05/22/20 07:44 BP 145/64 H 05/22/20 07:44 Pulse Ox 96 05/22/20 07:44 Weight - Most Recent: 149 lb 9.6 oz I&O - Last 24 Hours: Intake & Output 05/21/20 05/22/20 05/22/20 22:59 06:59 14:59 Intake Total 1209 300 Balance 1209 300 Med Orders - Current: Current Medications Atorvastatin Calcium (Lipitor) 80 mg PO BEDTIME [facility] Last Admin: 05/21/20 19:17 Dose: 80 mg Documented by: Bisacodyl (Dulcolax) 5 mg PO BEDTIME PRN PRN Reason: Constipation Celecoxib (Celebrex) 100 mg PO DAILY [facility] Last Admin: 05/22/20 07:35 Dose: 100 mg Documented by: Docusate Sodium (Colace) 100 mg PO BID [facility] Last Admin: 05/22/20 07:32 Dose: 100 mg Documented by: Enoxaparin Sodium (Lovenox) 40 mg SUBCUT BEDTIME [facility] Last Admin: 05/21/20 19:17 Dose: 40 mg Documented by: Fentanyl (Duragesic) 12 mcg TRDERM Q72H [facility] Last Admin: 05/20/20 08:41 Dose: 12 mcg Documented by: Fentanyl (Fentanyl) 12.5 - 25 mcg IVPUSH Q6H PRN PRN Reason: Breakthrough Pain Last Admin: 05/22/20 07:49 Dose: 25 mcg Documented by: Furosemide (Lasix) 40 mg PO DAILY [facility] Last Admin: 05/22/20 07:33 Dose: 40 mg Documented by: Sodium Chloride (Normal Saline) 1,000 mls @ 75 mls/hr IV ASDIRECTED [facility] Last Admin: 05/21/20 19:17 Dose: 75 mls/hr Documented by: Isosorbide Mononitrate (Imdur) 30 mg PO DAILY [facility] Last Admin: 05/22/20 07:35 Dose: 30 mg Documented by: Levothyroxine Sodium (Synthroid) 50 mcg PO DAILY [facility] Last Admin: 05/22/20 07:32 Dose: 50 mcg Documented by: Metoprolol Tartrate (Lopressor) 25 mg PO BID [facility] Last Admin: 05/22/20 07:33 Dose: 25 mg Documented by: Miscellaneous Information (Remove Patch) 1 ea TRDERM Q72H [facility] Oxybutynin Chloride (Oxybutynin) 10 mg PO BID [facility] Last Admin: 05/22/20 07:34 Dose: 10 mg Documented by: Pantoprazole Sodium (Protonix Iv) 40 mg IVPUSH Q12H [facility] Last Admin: 05/22/20 09:05 Dose: 40 mg Documented by: Polyethylene Glycol (Miralax) 17 gm PO DAILY PRN PRN Reason: Constipation Potassium Chloride (Klor-Con 10) 20 meq PO BID [facility] Last Admin: 05/22/20 07:35 Dose: 20 meq Documented by: Tramadol HCl (Ultram) 50 mg PO Q6H PRN PRN Reason: Pain Last Admin: 05/21/20 16:36 Dose: 50 mg Documented by: Valacyclovir HCl (Valtrex) 500 mg PO DAILY [facility] Last Admin: 05/22/20 07:34 Dose: 500 mg Documented by: Discontinued Medications Fentanyl (Fentanyl) 12.5 mcg IVPUSH Q6H PRN PRN Reason: Breakthrough Pain Last Admin: 05/20/20 08:35 Dose: 12.5 mcg Documented by: Fentanyl (Duragesic) 12 mcg TRDERM Q72H [facility] Last Admin: 05/19/20 22:24 Dose: Not Given Documented by: - Exam General: Alert, Oriented HEENT: Other (mucous membranes dry) Neck: Supple Lungs: Clear to Auscultation, Normal Respiratory Effort Cardiovascular: Regular Rate, Regular Rhythm GI/Abdominal Exam: Normal Bowel Sounds, Soft, Non-Tender Extremities: Normal Inspection, Pedal Edema (trace), Other (right arm is weak but is moving today, does not grasp with hand when asked) Skin: Warm, Dry Neurological: No New Focal Deficit Sepsis Event Note - Evaluation Sepsis Screening Result: No Definite Risk - Focused Exam Vital Signs: Vital Signs Temp Pulse Pulse Resp BP BP Pulse Ox 05/22/20 07:44 97.8 F 84 16 145/64 H 96 05/22/20 07:35 145/64 H 05/22/20 07:33 84 145/64 H 05/22/20 00:00 97 F 78 18 122/56 L 97 - Problem List & Annotations (1) Failure to thrive in adult SNOMED Code(s): 038517322 Code(s): R62.7 - ADULT FAILURE TO THRIVE Status: Acute Priority: High Current Visit: Yes (2) Weakness SNOMED Code(s): 54117743 Code(s): R53.1 - WEAKNESS Status: Acute Priority: High Current Visit: Yes (3) Multiple myeloma SNOMED Code(s): 643176577 Code(s): C90.00 - MULTIPLE MYELOMA NOT HAVING ACHIEVED REMISSION Status: Chronic Priority: High Current Visit: Yes Qualifiers: Multiple myeloma remission status: not in remission Qualified Code(s): C90.00 - Multiple myeloma not having achieved remission (4) Palliative care status SNOMED Code(s): 302232625 Code(s): Z51.5 - ENCOUNTER FOR PALLIATIVE CARE Status: Chronic Priority: Medium Current Visit: Yes - Problem List Review Problem List Initiated/Reviewed/Updated: Yes - Assessment Assessment:: Failure to thrive Weakness Multiple Myeloma Palliative Care patient - Plan Plan:: Will continue to titrate pain medication. Discussed with Maday it may make her sleepy, which she states would be okay. Sodium stable today. Family will be present this weekend and will decide on Hospice care. 05-21-2020 Will continue with current IV pain medication as staff states she does rest well, sleeps and is eating. Labs stable. Will continue with present care, await family decision on home with hospice on Saturday. 05-22-2020 Was called in to assess patient yesterday afternoon due to right arm weakness. Staff had noted that she right arm appeared limp, would not grasp with hand or move. Had been complaining of pain throughout the stay here. Patient continue to have flaccidity of arm with my exam but noted that she will reach out when nurses turn her. Did contact family to inquire about investigation of this, ie. stroke work up. Did have a CT scan on Saturday prior. Family relates that would not like any further testing as likely will be switched to hospice tomorrow. Relates that has had intermittent weakness of her right arm and they have suspected TIAs in the past. At this point, will continue with IV fluids. PRN pain meds. Follow up with social security assessor tomorrow.
[2020-05-22] MEDS: Sodium Chloride 0.9% 1,000 ML IV SCH ×2 (15:33→23:15)
[2020-05-22] MEDS: traMADol 50 MG Tab PO PRN (16:39)
[2020-05-22] MEDS: atorvaSTATin 20 MG Tab PO SCH (22:48)
[2020-05-22] MEDS: Enoxaparin 40 MG/0.4 ML Syringe SUBCUT SCH (22:49)
[2020-05-23] MEDS: fentaNYL 50 MCG/ML SDV IVPUSH PRN ×2 (04:08→06:12)
[2020-05-23 07:42] VITALS: PULSE 107
[2020-05-23] MEDS: Potassium Chloride 10 MEQ Tab.ER PO SCH (07:50)
[2020-05-23] MEDS: Docusate Sodium 100 MG Cap PO SCH (07:50)
[2020-05-23] MEDS: Isosorbide Mononitrate 30 MG Tab.ER PO SCH (07:51)
[2020-05-23] MEDS: Levothyroxine 50 MCG Tab PO SCH (07:52)
[2020-05-23] MEDS: Furosemide 40 MG Tab PO SCH (07:52)
[2020-05-23] MEDS: Oxybutynin 5 MG Tab PO SCH (07:52)
[2020-05-23] MEDS: valACYclovir 500 MG Tab PO SCH (07:52)
[2020-05-23] MEDS: Metoprolol Tartrate 25 MG Tab PO SCH (07:53)
[2020-05-23] MEDS: Celecoxib 100 MG Cap PO SCH (07:53)
[2020-05-23 07:54] VITALS: BP 169/78
[2020-05-23] MEDS: Pantoprazole 40 MG Vial IVPUSH SCH (08:50)
[2020-05-23] MEDS ORDERED: fentaNYL 25 MCG/HR Transdermal Patch TRDERM SCH (09:00)
--- NOTE | 2020-05-23 09:07 | PCM.DCSUM1 ---
Discharge Summary - Hospital Course HPI Initial Comments: Maday is an 84 yo female who was admitted from ED on 05/19/2020 with concerns of weakness, hyponatremia and chronic pain. Patient was discharged from the hospital the day prior to have home health or hospice care. Patient has known history of multiple myeloma. Home health nurse did evaluate patient and when she arrived on that evening the family- daughter and couldn't decide if she should be HH or hospice. She was having pain that the fentanyl wasn't controlling. Pt states that she hurts and wanted better pain control. She states that the pain is in her back and hips bilaterally. She is having trouble getting around at home due to the weakness and needs more help. She denies any falls while at home. - Discharge Data Discharge Date: 05/23/20 Discharge Disposition: Home, W Home Health Agency 06 Condition: Good - Referral to Home Health Date of Face to Face Encounter: 05/23/20 Reason for Homebound Status: End stage multiple myeloma with comfort measures Primary Care Physician: Blayne Palmer MD Skilled Need: Hospice for pain control and end of life care. - Discharge Diagnosis/Problem(s) (1) Back pain SNOMED Code(s): 140991479 ICD Code: M54.9 - DORSALGIA, UNSPECIFIED Status: Acute Priority: High Current Visit: Yes Qualifiers: Back pain location: low back pain Chronicity: acute Back pain laterality: midline Sciatica presence: without sciatica Qualified Code(s): M54.5 - Low back pain (2) Hyponatremia SNOMED Code(s): 27735597 ICD Code: E87.1 - HYPO-OSMOLALITY AND HYPONATREMIA Status: Chronic Priority: High Current Visit: Yes (3) Inadequate pain control SNOMED Code(s): 337797463 ICD Code: R52 - PAIN, UNSPECIFIED Status: Acute Priority: High Current Visit: Yes (4) Weakness SNOMED Code(s): 43516638 ICD Code: R53.1 - WEAKNESS Status: Acute Priority: High Current Visit: Yes (5) Multiple myeloma SNOMED Code(s): 470705144 ICD Code: C90.00 - MULTIPLE MYELOMA NOT HAVING ACHIEVED REMISSION Status: Chronic Priority: High Current Visit: Yes Qualifiers: Multiple myeloma remission status: not in remission Qualified Code(s): C90.00 - Multiple myeloma not having achieved remission (6) Palliative care status SNOMED Code(s): 702087580 ICD Code: Z51.5 - ENCOUNTER FOR PALLIATIVE CARE Status: Chronic Priority: Medium Current Visit: Yes - Patient Summary/Data Consults: Consultations 05/19/20 21:21 PT Evaluation and Treatment [CONS] Routine - Patient Instructions Diet: Usual Diet as Tolerated Activity: As Tolerated - Discharge Plan Home Medications: Home Meds Metoprolol Tartrate [Lopressor] 1 tab PO BID 10/10/14 [History] Omeprazole 20 mg PO DAILY 10/10/14 [History] traMADol HCl [Tramadol HCl] 1 tab PO BID 10/10/14 [History] Levothyroxine Sodium [Levoxyl] 50 mcg PO DAILY 08/05/17 [History] fentaNYL [Duragesic] 25 mcg TRDERM Q72H #10 patch 05/23/20 [Rx] Forms: ED Department Discharge - Discharge Summary/Plan Comment DC Time >30 min.: Yes Discharge Summary/Plan Comment: Discussed Maday's current status with family today. Plan for discharge and will take home with Hospice to resume care. Patient admits this is her wishes at this time and wants the pain to stop and to just rest. Family will take patient home today. Pain medications to continue until Hospice evaluates. - General Info Subjective Update: Maday is an 84 yo female who was admitted from ED yesterday with concerns of weakness, hyponatremia and chronic pain. Patient was discharged from the hospital yesterday to have home health or hospice care. Patient has known history of multiple myeloma. Home health nurse did evaluate patient and when she arrived yesterday evening the family- daughter and couldn't decide if she should be HH or hospice. She was having pain that the fentanyl wasn't controlling. PPt states that she hurts and wanted better pain control. She states that the pain is in her back and hips bilaterally. She is having trouble getting around at home due to the weakness and needs more help. She denies any falls while at home. 05/20/2020 Maday is alert and orientated this morning. States she continue to have discomfort and asks if she can get any more medication to help with this. Otherwise continues to feel very weak and states she is ready to . States she doesn't want any more treatments at this time. States she is tired. 05-21-2020 Patient is resting comfortably at this time, does state that has pain all over all the time. Does not feel medications help long enough. Still weak. Expresses desire to "just be done and ". Does moan continuously in room despite pain meds given. Appetite has been good, patient complains that "they push and push and make me eat", nurse reports she has good appetite. No chest pain or shortness of breath. Denies any nausea. 05-22-2020 Patient is lethargic this am but does arouse to verbal command. States has pain all over from her cancer. "just wants a pill to help end it". Did have 50% of breakfast this am, does feed self. Denies shortness of breath or chest pain. Still requiring PRN pain meds. Nurse did rub biofreeze on joints today. Very weak. 05-23-2020 Patient continues to be weak today and complaining of discomfort. Was eating breakfast this morning. Right arm continues to have weakness but is able to squeeze fingers. She admits she is tired and just wants to sleep. Is orientated X 3. Functional Status: Denies: Pain Controlled - Review of Systems General: Reports: Weakness, Fatigue Pulmonary: Reports: No Symptoms Cardiovascular: Reports: No Symptoms Gastrointestinal: Reports: No Symptoms Genitourinary: Reports: No Symptoms Musculoskeletal: Reports: Back Pain, Other (bone pain) Skin: Reports: No Symptoms Neurological: Reports: No Symptoms - Patient Data Vitals - Most Recent: Last Vital Signs Temp 98.0 F 05/23/20 07:41 Pulse 107 H 05/23/20 07:53 Resp 18 05/23/20 07:41 BP 169/78 H 05/23/20 07:53 Pulse Ox 97 05/23/20 07:41 Weight - Most Recent: 152 lb 1.6 oz I&O - Last 24 hours: Intake & Output 05/22/20 05/23/20 05/23/20 22:59 06:59 14:59 Intake Total 500 578 Balance 500 578 Med Orders - Current: Current Medications Atorvastatin Calcium (Lipitor) 80 mg PO BEDTIME [facility] Last Admin: 05/22/20 22:48 Dose: Not Given Documented by: Bisacodyl (Dulcolax) 5 mg PO BEDTIME PRN PRN Reason: Constipation Celecoxib (Celebrex) 100 mg PO DAILY [facility] Last Admin: 05/23/20 07:53 Dose: 100 mg Documented by: Docusate Sodium (Colace) 100 mg PO BID [facility] Last Admin: 05/23/20 07:50 Dose: 100 mg Documented by: Enoxaparin Sodium (Lovenox) 40 mg SUBCUT BEDTIME [facility] Last Admin: 05/22/20 22:49 Dose: Not Given Documented by: Fentanyl (Duragesic) 25 mcg TRDERM Q72H [facility] Last Admin: 05/23/20 08:50 Dose: 25 mcg Documented by: Fentanyl (Fentanyl) 12.5 mcg IVPUSH Q2H PRN PRN Reason: Breakthrough Pain Last Admin: 05/23/20 06:12 Dose: 12.5 mcg Documented by: Fentanyl (Fentanyl) 25 mcg IVPUSH Q4H PRN PRN Reason: Breakthrough Pain Last Admin: 05/23/20 04:08 Dose: 25 mcg Documented by: Furosemide (Lasix) 40 mg PO DAILY [facility] Last Admin: 05/23/20 07:52 Dose: 40 mg Documented by: Sodium Chloride (Normal Saline) 1,000 mls @ 75 mls/hr IV ASDIRECTED [facility] Last Admin: 05/22/20 23:15 Dose: 75 mls/hr Documented by: Isosorbide Mononitrate (Imdur) 30 mg PO DAILY [facility] Last Admin: 05/23/20 07:51 Dose: 30 mg Documented by: Levothyroxine Sodium (Synthroid) 50 mcg PO DAILY [facility] Last Admin: 05/23/20 07:52 Dose: 50 mcg Documented by: Metoprolol Tartrate (Lopressor) 25 mg PO BID [facility] Last Admin: 05/23/20 07:53 Dose: 25 mg Documented by: Miscellaneous Information (Remove Patch) 1 ea TRDERM Q72H [facility] Last Admin: 05/23/20 08:51 Dose: Not Given Documented by: Oxybutynin Chloride (Oxybutynin) 10 mg PO BID [facility] Last Admin: 05/23/20 07:52 Dose: 10 mg Documented by: Pantoprazole Sodium (Protonix Iv) 40 mg IVPUSH Q12H [facility] Last Admin: 05/23/20 08:50 Dose: 40 mg Documented by: Polyethylene Glycol (Miralax) 17 gm PO DAILY PRN PRN Reason: Constipation Potassium Chloride (Klor-Con 10) 20 meq PO BID [facility] Last Admin: 05/23/20 07:50 Dose: 20 meq Documented by: Tramadol HCl (Ultram) 50 mg PO Q6H PRN PRN Reason: Pain Last Admin: 05/22/20 16:39 Dose: 50 mg Documented by: Valacyclovir HCl (Valtrex) 500 mg PO DAILY [facility] Last Admin: 05/23/20 07:52 Dose: 500 mg Documented by: Discontinued Medications Fentanyl (Duragesic) 12 mcg TRDERM Q72H [facility] Last Admin: 05/20/20 08:41 Dose: 12 mcg Documented by: Fentanyl (Fentanyl) 12.5 mcg IVPUSH Q6H PRN PRN Reason: Breakthrough Pain Last Admin: 05/20/20 08:35 Dose: 12.5 mcg Documented by: Fentanyl (Duragesic) 12 mcg TRDERM Q72H [facility] Last Admin: 05/19/20 22:24 Dose: Not Given Documented by: Fentanyl (Fentanyl) 12.5 - 25 mcg IVPUSH Q6H PRN PRN Reason: Breakthrough Pain Last Admin: 05/22/20 15:15 Dose: 25 mcg Documented by: - Exam General: Reports: Alert, Oriented, Lethargic Neck: Reports: Supple Lungs: Reports: Clear to Auscultation, Normal Respiratory Effort Cardiovascular: Reports: Regular Rate, Regular Rhythm GI/Abdominal Exam: Normal Bowel Sounds, Soft, Non-Tender Extremities: Pedal Edema (trace) Skin: Reports: Warm, Dry, Intact Neurological: Reports: Normal Speech, Normal Tone. Denies: Strength Equal Bilateral Psy/Mental Status: Reports: Alert, Normal Mood
== END 2020-05-23 14:09 | disposition home health service (06) | DRG 948 ==
LOC: CC.ED 18:34 → CC.MS 20:24 → UNDOADMIN 20:24 → CC.MS 21:21
PROVIDERS: ADMIT Physician Assistant Medical; ATTEND Family Medicine
DX: G89.3 Neoplasm related pain (acute) (chronic) (principal); E87.1 Hypo-osmolality and hyponatremia; C90.00 Multiple myeloma not having achieved remission; Z51.5 Encounter for palliative care; R62.7 Adult failure to thrive; R53.1 Weakness; R52 Pain, unspecified; M54.5 Low back pain; R32 Unspecified urinary incontinence; G89.29 Other chronic pain; E66.9 Obesity, unspecified; Z96.659 Presence of unspecified artificial knee joint; Z86.16 Personal history of COVID-19; Z88.8 Allergy status to other drugs, medicaments and biological substances; Z88.2 Allergy status to sulfonamides; Z79.899 Other long term (current) drug therapy; Z79.890 Hormone replacement therapy
CPT/HCPCS: 36415; 80048; 80053; 83605; 85025; 86140; 97161-GP; 99285; A9270-GY; C9113; J1650; J3010; J7030